=== PATIENT | female | born 1950 | race Caucasian/White ===

== ENCOUNTER 2022-11-11 11:15 | Outpatient (RCR) | payer MEDICARE, BC, SELFPAY | END 2023-01-13 11:11 | disposition home or self-care (01) | PROVIDERS: PCP Family Medicine; Visit Provider Family Medicine | DX: M25.511 Pain in right shoulder (principal); Z51.89 Encounter for other specified aftercare | CPT/HCPCS: 97110; 97140; 97162 ==

== ENCOUNTER 2024-10-16 13:42 | Emergency (ER) | payer MEDICARE, BC, SELFPAY ==
[2024-10-16] VITALS (36 sets, daily range): BP systolic 156–188; BP diastolic 78–96; PULSE 82–104; RESP 9–31; TEMP 36.2; O2SAT 94–99; BMI 31.2
--- OUTSIDE RECORDS SUMMARY | 2024-10-16 13:45 | XMS_ITS | Clinical Summary ---
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 Chlorthalidone Other - Describe In Comment Field 08/25/2013 Low sodium Metformin Other - Describe In Comment Field 07/20/2022 Both short and long-acting formulations caused GI side-effects. Metoprolol Constipation 03/19/2009 Medications MULTIVITAMIN TAB take 1 tablet by oral route once daily with food 0 8 Active triamcinolone (ARISTOCORT; KENALOG) 0.1 % creamIndications:C hronic eczema Apply topically to affected area(s) three times daily. As needed to effected areas. 80 g 2 Active blood sugar diagnostic (Contour Next Test Strips) stripIndications:d iabetes mellitus Dispense test strips covered by the patient insurance. Test 1 times per day. 100 Each 12 3 Active lancets (Microlet Lancet)Indications :diabetes mellitus For testing blood sugars once per day 100 Each 3 Active fluocinolone 0.01 % 0.01 % otic solutionIndication s:Eczema of both external ears Use 5 drops in affected ear(s) 1-2x daily for 7 days when your ears itch. 20 mL 3 3 Active levothyroxine (SYNTHROID) 100 mcg tabletIndications: Acquired hypothyroidism Take 1 Tablet (100 mcg) by mouth before breakfast. 90 Tablet 3 4 Active amLODIPine (NORVASC) 10 mg tabletIndications: Essential hypertension Take 1 Tablet (10 mg) by mouth once daily. 90 Tablet 3 4 Active dapagliflozin propanediol (FARXIGA) 5 mg tabletIndications: Type 2 diabetes mellitus without complication, without long-term current use of insulin (HC) Take 1 Tablet (5 mg) by mouth once daily. 90 Tablet 1 4 Active rosuvastatin (CRESTOR) 5 mg tabletIndications: Hyperlipidemia, unspecified hyperlipidemia type Take 1 Tablet (5 mg) by mouth at bedtime. 30 Tablet 11 4 Active lisinopriL (PRINIVIL; ZESTRIL) 40 mg tabletIndications: Essential hypertension TAKE 1 TABLET(40 MG) BY MOUTH EVERY DAY 90 Tablet 2 5 Active hydroCHLOROthiazid e 25 mg tabletIndications: Essential hypertension TAKE 1 TABLET(25 MG) BY MOUTH EVERY DAY 90 Tablet 2 5 Active Active Problems Problem Noted Date Diagnosed Date Osteopenia of multiple sites 02/05/2022 Overview (02/10/2022): Low FRAX scores Hyponatremia 01/12/2022 Microalbuminuria 01/12/2022 Overweight 01/13/2021 Type 2 diabetes mellitus without complication Tobacco abuse 07/29/2011 Overview (07/29/2011): Unable to quit; has quit for short periods, then another crisis 07/29/2011 Colon polyp 04/29/2010 Overview (08/14/2021): Colonoscopy 04/2010 polyps repeat in 3 years Colonoscopy 09/2015 hyperplastic polyp repeat in 5 years Colonoscopy 08/2021 TA, repeat in 7 years, propofol, colowrap Unspecified hypothyroidism 06/14/2008 Unspecified essential hypertension Other and unspecified hyperlipidemia Resolved Problems Problem Noted Date Diagnosed Date Resolved Date Medicare annual wellness visit, subsequent 01/12/2022 01/25/2023 Bilateral lower extremity edema 09/22/2016 01/12/2022 Routine general medical exam ination at a health care facility 07/29/2011 12/20/2018 Overview (07/29/2011): Stress echocardiogram negative 2007 Nonspecific abnormal electro cardiogram (ECG) (EKG) 02/01/2008 02/21/2008 Immunizations Immunization Administration Dates Next Due COVID-19 VACCINE SPIKEVAX (M ODERNA 50MCG/0.5ML) 12YO+ PFS 02/23/2024,01/25/2023 COVID-19 vaccine ([employer]-Bio NTech 30mcg/0.3mL) 12YO+ BIVALENT PF, MDV 07/20/2022,01/12/2022 COVID-19 vaccine (Pfizer-Bio NTech 30mcg/0.3mL) 12YO+ HILTON-SUCROSE PF, MDV 07/14/2021 COVID-19 vaccine (Pfizer-Bio NTech 30mcg/0.3mL) PF, MDV 01/01/2021 Influenza A (H1N1), Inactiva taniya (Age >=3 Years) 03/19/2009 Influenza, IIV3 (Age >=3 years) 04/15/2011,03/19,03/28/2008 Influenza, Inactivated AIIV4 (Age 65+ Years) Preserv Free 01/25/2023,01/12/2022,01/01/2021,2019 Influenza, Inactivated IIV3 (Age 65+ Years) Preserv Free 02/23/2024,12/20/2018,11/09/2017 Pneumococcal Conj 20-valent (Prevnar 20) 07/20/2022 Pneumococcal Poly,23-Valent (Pneumovax) 09/11/2015 Pneumococcal conj 13-Valent (Prevnar 13) 08/30/2014 Td (Age >=7 Years) 03/11/1995 Td, Preservative Free (age > = 7 Years) 11/09/2017 Tdap 11/30/2007 Zoster (Zostavax-ZVL, live) 07/29/2011 Family History Medical History Relation Name Comments Cancer Father Andrei Jose bladder, a t 73 Hypertension Father Andrei Jose Hypertension Mother Kristie at 95 Cancer-ovarian Neg. 1 Cancer-colon Neg. 2 Diabetes Paternal Grandmother Anesthesia Problem No Family History Cancer-breast No Family History Relation Name Status Comments Father Andrei Jose (Age 71) Mother Kristie Alive Neg. 1 Neg. 2 Paternal Grandmother Sister 1 Marylin Alive Sister 2 Gladys Alive Social History Tobacco Use Types Packs/Day Years Used Date Smoking Tobacco: Every Day Cigarettes 1 35.2 Started: 1989 Smokeless Tobacco: Never Tobacco Cessation:Ready to Q uit: No; Counseling Given: No Alcohol Use Standard Drinks/Week Comments Yes 0 (1 standard drink = 0.6 oz pur e alcohol) occasional beer PHQ-2 Answer Date Recorded PHQ-2 TOTAL SCORE 0 02/23/2024 Social Connections Answer Date Recorded Do you often feel lonely or isolated from those around you? 0 02/22/2024 Financial Resource Strain Answer Date R ecorded Difficulty of Paying Living Expenses 3 02/22/2024 Difficulty of Paying Living Expenses Not on file 02/22/2024 Food Insecurity Answer Date Recorded Do you worry your food will run out before you are able to buy more? 1 02/22/2024 Transportation Needs Answer Date Record ed Does lack of transportation keep you from medica l appointments? 1 02/22/2024 Does lack of transportation keep you from work, meetings or getting things that you need? 1 02/22/2024 Housing Stability Answer Date Recorded What is your housing situation today? 1 02/22/2024 Utilities Answer Date Recorded Do you have trouble paying f or utilities (for example, heat, electricity, water, phone)? 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 Not on file Not on file Not on file Not on file Not on file Not on file Not on file Obstetrics History Para Term AB IAB SAB Ectopic Multiple Livin g Live Births 3 3 3 Date Outcome GA Total Labor Labor/2nd/3rd Weight Sex Type Anes PTL Dora A1 A5 Name Clin Para Para Comments:C Sec Para Comments:C Sec Last Filed Vital Signs Vital Sign Reading Time Taken Comments Blood Pressure 138/62 02/23/2024 3:30 PM SOLE CEMENTER Pulse 96 02/23/2024 2:56 PM SOLE CEMENTER Temperature 36.7 C (98.1 F) 01/21/2021 1:21 PM SOLE CEMENTER Respiratory Rate 20 12/24/2007 9:04 AM CDT Oxygen Saturation 99% 02/23/2024 2:56 PM SOLE CEMENTER Inhaled Oxygen Concentration - - Weight 85.5 kg (188 lb 9.6 oz) 02/23/2024 2:56 P M SOLE CEMENTER Height 169.6 cm (5' 6.77) 02/23/2024 2:56 PM CS T Body Mass Index 29.74 02/23/2024 2:56 PM SOLE CEMENTER Plan of Treatment Health Maintenance Due Date Last Done Comments Zoster (shingles) series for age 50+ (2 of 3) 09/23/2011 07/29/2011 RSV vaccine for adults or (1 - 1-dose 75+ series) 2024 COVID-19 vaccine series (2023- season) 2024 02/23/2024, 01/25/2023, 07/20/2022, Additional history exists Influenza Vaccine (#1) 2024 , 01/25/2023, 01/12/2022, Additional history exists BMI (ht and wt on same day) for age 18+ 02/22/2025 02/23/2024, 01/25/2023, 01/12/2022, Additional history exists Medicare Wellness for age 65+ 02/23/2025 02/23/2024, 01/25/2023, 01/12/2022, Additional history exists Depression screening for age 12+ 03/13/2025 03/13/2024, 02/24/2024, 02/23/2024, Additional history exists Low Dose CT (for lung CA) age 50-80 03/13/2025 03/13/2024, 02/01/2023, 01/26/2022, Additional history exists Tetanus booster 11/10/2027 11/09/2017, 11/07, 03/11/1995 Colonoscopy through age 75 08/11/202808/11, 08/11/2021, 10/03/2015, Additional history exists Lipids for age 45-75 02/22/2029 02/23/2024, 01/22/2023, 01/06/2022, Additional history exists Hepatitis C screening for age 18-79 Completed 12/15/2018, 08/16/2012 DEXA/DXA scan for age 65+ Completed 02/09/2022, Pneumococcal series for age 50+ Completed 07/20/2022, 09/11/2015, 08/30/2014 Hepatitis B series for 19+ Aged Out N o longer eligible based on patient's age to complete this topic Procedures Procedure Name Priority Date/Time Associated Diagnosis Comments CT CHEST SCREENING LOW DOSE WO CONTRAST Routine 03/13/2024 8:29 AM SOLE CEMENTER Encounter for screening for lung cancer Smoker LIPID PANEL W REFLEX MEASURED LDL Routine 02/23/2024 3:55 PM SOLE CEMENTER Type 2 diabetes mellitus without complication, without long-term current use of insulin (HC) XR DXA BONE DENSITY 2 SITES AXIAL Routine 02/09/2022 9:28 AM SOLE CEMENTER Post-menopause COLONOSCOPY SCREENING Routine 08/11/2021 12:00 AM CDT Screening for colon cancer ANTI HCV Add On 12/15/2018 8:09 AM CDT Need for hepatitis C screening test from Last 3 Months or Most Recently Relevant to Health Maintenance Results * CT CHEST SCREENING LOW DOSE WO CONTRAST (03/13/2024 8:29 AM SOLE CEMENTER) Anatomical Region Laterality Modality Computed Tomogra phy Impressions 03/21/2024 10:47 AM SOLE CEMENTER Stable scattered sub 6 mm indeterminate pulmonary nodules. Lung-RADS 2. No intrathoracic mass or consolidation. Exophytic upper pole right renal nodular lesion measuring non simple attenuation and 3.3 cm. Incompletely visualized and assessed on this exam. If not previously worked up, recommend nonemergent dedicated renal ultrasound to assess cystic versus solid nature. LUNG-RADS CATEGORY: 2: Benign. RADIOLOGIST RECOMMENDATION: Continue annual screening with low-dose CT chest in 12 months. Dictated by: Stan Boateng MD @03/13/2024 1:45:49 PM /sp Narrative 03/21/2024 10:47 AM SOLE CEMENTER For Patients: As a result of the Century Cures Act, medical imaging exams and procedure reports are released immediately into your electronic medical record. You may view this report before your referring provider. If you have questions, please contact your health care provider. CT CHEST SCREENING LOW-DOSE WITHOUT CONTRAST 03/13/2024 INDICATION: Lung cancer screening. History of smoking. High-risk patient with smoking history. TECHNIQUE: Low-dose lung cancer screening non-contrast CT chest. Dose reduction techniques were used. COMPARISON: Exams dating back to 2020. FINDINGS: Lungs and Airways: No mass or consolidation. No endoluminal lesion. Stable scattered sub 6 mm indeterminate pulmonary nodules. No new suspicious pulmonary nodules. Heart and Mediastinum: Atrophic versus resected thyroid. No axillary or supraclavicular lymphadenopathy. No mediastinal, hilar or retrocrural lymphadenopathy. Normal heart size. Normal caliber aorta. Atherosclerotic and coronary artery calcifications. Pleura: The pleural spaces are normal. Abdomen: Exophytic upper pole right renal nodular lesion measuring non simple attenuation and 3.3 cm. Incompletely visualized and assessed on this exam. If not previously worked up, recommend nonemergent dedicated renal ultrasound to assess cystic versus solid nature. Bones and Soft Tissues: The skeletal structures and soft tissues of the chest wall are unremarkable. us Claus Khan MD CT Final Result * (ABNORMAL) LIPID PANEL W REFLEX MEASURED LDL (02/23/2024 3:55 PM SOLE CEMENTER) CHOLESTEROL, TOTAL 238(H) <200 mg/dL [facility] HDL CHOLESTEROL 47(L) > OR = 50 mg/dL [facility] TRIGLYCERIDES 189(H) <150 mg/dL [facility] LDL-CHOLESTEROL 157(H) mg/dL (calc) [facility] Comment: Reference range: <100 Desirable range <100 mg/dL for primary prevention; <70 mg/dL for patients with CHD or diabetic patients with > or = 2 CHD risk factors. LDL-C is now calculated using the Simin calculation, which is a validated novel method providing better accuracy than the Friedewald equation in the estimation of LDL-C. Teodoro RICO et al. SERGIO. 2013;310(19): 8279-5859 (http://education.wali/faq/LAX248) CHOL/HDLC RATIO 5.1(H) <5.0 (calc) [facility] NON HDL CHOLESTEROL 191(H) <130 mg/dL (calc) [facility] Comment: For patients with diabetes plus 1 major ASCVD risk factor, treating to a non-HDL-C goal of <100 mg/dL (LDL-C of <70 mg/dL) is considered a therapeutic option. Blood BLOOD SPECIMEN / Unknown 02/23/2024 3:55 PM SOLE CEMENTER 02/23/2024 3:56 PM SOLE CEMENTER Claus Khan MD CHEMISTRY Final Result [facility] [address] [place] [address], [facility] [address] [place] [address] * (ABNORMAL) XR DXA BONE DENSITY 2 SITES AXIAL (02/09/2022 9:28 AM SOLE CEMENTER) Anatomical Region Laterality Modality Spine, HIPS, HIPL, HIPR Other Impressions 02/10/2022 12:48 PM SOLE CEMENTER Osteopenia. RECOMMENDATIONS: The National Osteoporosis Foundation recommends pharmacologic treatment for patients with T-scores of -2.5 or less, patients with prior history of fragility fractures, or patients with 10-year probability of greater than 3% at hips or greater than 20% of suffering major osteoporotic fractures. Recommend continued optimization of calcium and vitamin D intake through dietary means and/or supplementation and regular exercise. Repeat scan recommended in 3-5 years. Mirian Ngo PA-C [facility] 02/10/2022 Narrative 02/10/2022 12:48 PM SOLE CEMENTER For Patients: Results are automatically released to your [facility] account once available, in compliance with federal regulations. This means that you may see your results before your provider has had a chance to review them. Please allow 2-3 business days for your provider to comment on the results. XR DXA Bone Mineral Density (BMD) EXAM [address]: [address] [place] [address] PATIENT NAME: Savannah Alberto DATE OF : 1950 EXAM DATE: 02/09/2022 REQUESTING PROVIDER: Claus Khan MD GENDER AT : female HEIGHT: 5' 6.85 (01/12/2022) WEIGHT: 194 lb 9.6 oz (01/12/2022) MENOPAUSAL STATUS: Postmenopausal RACE/ETHNICITY: White RISK FACTORS: Smoking (current) CURRENT MEDICATION FOR BONE LOSS: NONE INDICATION: Post-Menopause COMPARISON DATE(S): 2016 DXA scans are compared to prior studies for a patient only when the two (or more) studies were performed on the same scanner. It is not possible to compare data generated on one scanner to data from another because there are not standards in DXA equipment. This applies even if the two scanners are made by the same kid club attendant. PROCEDURE: Dual-energy x-ray absorptiometry performed with routine technique. Reporting is completed in the form of a T-score. The T-score represents the standard deviation from peak bone mass based on young healthy adult. A Z-score is used for diagnosis in premenopausal women, and for men under the age of 50. FINDINGS: RESULT LUMBAR SPINE L1 - L4 BMD: 1.255 g/cm2 T-Score: + 0.5 Z-Score: + 1.4 Change from prior in 2016: Increase 3.6%. RESULTS FEMUR Left femoral neck BMD: 0.875 g/cm2 T-Score: - 1.2 Z-Score: + 0.1 Change from prior in 2016: Decrease 2.2%. Right femoral neck BMD: 0.872 g/cm2 T-Score: - 1.2 Z-Score: + 0.1 Change from prior in 2016: Decrease 9.7%. Left hip BMD: 0.988 g/cm2 T-Score: - 0.2 Z-Score: + 0.9 Change from prior in 2016: Decrease 0.1%. Right hip BMD: 1.012 g/cm2 T-Score: + 0.0 Z-Score: + 1.1 Change from prior in 2016: Decrease 4.5%. WHO criteria: Normal: T-score at or above -1 SD Osteopenia: T-score between -1.1 and -2.4 SD Osteoporosis: T-score at or below -2.5 SD FRAX RISK CALCULATION (USED FOR OSTEOPENIA ONLY): 10-year probability of major osteoporotic fracture: 9.7%. 10-year probability of hip fracture: 2.2%. Claus Khan MD DEXA Final Result * COLONOSCOPY SCREENING (08/11/2021 12:00 AM CDT) Claus Khan MD GI PROCEDURE ORD Final Result * ANTI HCV (12/15/2018 8:09 AM CDT) HEPATITIS C ANTIBODY Non-React emy Non-React emy 12/20/2018 9:40 AM CDT [facility] Comment:Antibodies to HCV no t detected; does not exclude the possibility of exposure to HCV. Blood BLOOD SPECIMEN / Unknown Venipuncture / Unknown 12/15/2018 8:09 AM CDT 12/15/2018 8:09 AM CDT Claus Khan MD SEND OUTS Final Result [facility] [address] [place] [address], from Last 3 Months or Most Recently Relevant to Health Maintenance Insurance [employer] [id number] [employer] BLUE MR PB ONLY MEDICARE PART B HB ONLY [employer]UE [employer] BLUE HB ONLY Care Teams Athletics Teacher Relationship Specialty Start Date End Date Claus Khan MD [address] [place] [address] PCP - General Family Practice 08/18/13
--- NOTE | 2024-10-16 14:06 | ED.CHESTPAIN ---
HPI - Chest Pain General Time Seen by Provider: 14:06 Date Seen: 10/16/24 Chief Complaint: Chest Pain Stated Complaint: mid chest pain/ BP up and down Time Seen by Provider: 10/16/24 14:06 Source: patient and RN notes reviewed Mode of arrival: ambulatory Limitations: no limitations History of Present Illness HPI narrative: Nursing staff asked me to attend this patient after EKG was obtained in triage with abnormality. They did give patient 324 mg aspirin, at this time she states her symptoms really seem to be better. She had generalized jaw tightness and discomfort around 630-7 this morning. She states there were time she thought maybe was just anxiety. She had some central substernal lower chest pain starting around 11:00 a.m. today. She does have a hypertension, there is no family history of heart disease, no personal history of heart disease prior. She thought her blood pressure was labile during this. When she came in her chest symptoms were 3/10, by the time I am seen her she states she really does not have any symptoms. She is not short of breath, no respiratory symptoms with this. She did state she ate lunch, maybe felt a little worse after that but otherwise no GI symptoms with this. Related Data Home Medications ?Medication ?Instructions ?Recorded ?Confirmed amlodipine 10 mg tablet 10 mg PO DAILY 11/10/23 11/10/23 hydrochlorothiazide 25 mg tablet 25 mg PO DAILY 11/10/23 11/10/23 levothyroxine 100 mcg tablet 100 mcg PO DAILY 11/10/23 11/10/23 lisinopril 40 mg tablet 40 mg PO DAILY 11/10/23 11/10/23 Allergies Allergy/AdvReac Type Severity Reaction Status Date / Time No Known Drug Allergies Allergy Verified 11/10/23 09:39 Review of Systems Status of ROS Reports: 6 or more systems reviewed and unremarkable except as noted in History and below Exam Const Vital Signs, click to edit/add: Vital Signs - 24 hr 10/16/24 13:57 10/16/24 14:19 10/16/24 14:22 Temperature 97.2 F L Pulse Rate 104 H Pulse Rate [Pulse Oximeter] 103 H Respiratory Rate 16 24 Blood Pressure Blood Pressure [Right Upper Arm] 175/78 H Pulse Oximetry 96 99 98 Oxygen Delivery Method Room Air 10/16/24 14:30 10/16/24 14:32 10/16/24 14:45 Temperature Pulse Rate 98 101 H 100 Pulse Rate [Pulse Oximeter] Respiratory Rate 10 L 11 L 21 Blood Pressure 175/88 H Blood Pressure [Right Upper Arm] Pulse Oximetry 98 97 99 Oxygen Delivery Method 10/16/24 15:00 10/16/24 15:02 10/16/24 15:15 Temperature Pulse Rate 89 96 91 Pulse Rate [Pulse Oximeter] Respiratory Rate 14 15 11 L Blood Pressure 168/92 H Blood Pressure [Right Upper Arm] Pulse Oximetry 98 96 96 Oxygen Delivery Method 10/16/24 15:30 10/16/24 15:32 10/16/24 15:45 Temperature Pulse Rate 97 98 95 Pulse Rate [Pulse Oximeter] Respiratory Rate 17 13 10 L Blood Pressure 176/80 H Blood Pressure [Right Upper Arm] Pulse Oximetry 96 96 97 Oxygen Delivery Method 10/16/24 16:00 10/16/24 16:02 10/16/24 16:15 Temperature Pulse Rate 98 100 98 Pulse Rate [Pulse Oximeter] Respiratory Rate 12 16 31 H Blood Pressure 172/89 H Blood Pressure [Right Upper Arm] Pulse Oximetry 98 98 97 Oxygen Delivery Method 10/16/24 16:24 10/16/24 16:30 10/16/24 16:45 Temperature Pulse Rate 97 96 98 Pulse Rate [Pulse Oximeter] Respiratory Rate 11 L 25 H 22 Blood Pressure 188/96 H Blood Pressure [Right Upper Arm] Pulse Oximetry 99 98 97 Oxygen Delivery Method 10/16/24 17:06 10/16/24 17:07 10/16/24 17:15 Temperature Pulse Rate 99 94 Pulse Rate [Pulse Oximeter] Respiratory Rate 17 14 20 Blood Pressure 173/89 H Blood Pressure [Right Upper Arm] Pulse Oximetry 96 97 Oxygen Delivery Method 10/16/24 17:30 10/16/24 17:45 10/16/24 18:00 Temperature Pulse Rate 92 100 91 Pulse Rate [Pulse Oximeter] Respiratory Rate 16 16 12 Blood Pressure Blood Pressure [Right Upper Arm] Pulse Oximetry 96 97 96 Oxygen Delivery Method 10/16/24 18:04 10/16/24 18:15 10/16/24 18:30 Temperature Pulse Rate 93 89 94 Pulse Rate [Pulse Oximeter] Respiratory Rate 23 9 L Blood Pressure 163/94 H Blood Pressure [Right Upper Arm] Pulse Oximetry 96 97 96 Oxygen Delivery Method 10/16/24 18:45 08/11/25 18:58 10/16/24 19:00 Temperature Pulse Rate 87 84 91 Pulse Rate [Pulse Oximeter] Respiratory Rate 21 15 15 Blood Pressure 175/94 H Blood Pressure [Right Upper Arm] Pulse Oximetry 97 96 94 Oxygen Delivery Method 10/16/24 19:15 10/16/24 19:30 10/16/24 19:46 Temperature Pulse Rate 82 Pulse Rate [Pulse Oximeter] Respiratory Rate 18 15 Blood Pressure 156/91 H Blood Pressure [Right Upper Arm] Pulse Oximetry 95 Oxygen Delivery Method 10/16/24 20:44 10/16/24 21:03 10/16/24 21:15 Temperature Pulse Rate Pulse Rate [Pulse Oximeter] Respiratory Rate 17 17 Blood Pressure 160/95 H Blood Pressure [Right Upper Arm] Pulse Oximetry Oxygen Delivery Method Course Course ED Course: This patient has chest pain and jaw symptoms with abnormal EKG that is concerning for ischemic disease. Will get a point of care troponin and get a backup troponin I. Will also consider D-dimer as she is hypertensive here, could be some atypical presentation aortic disease like dissection or aneurysm. Right now she is hemodynamically stable, mildly tachycardic with no hypoxia no respiratory symptoms, doubt venous thromboembolic disease. Will talk to Cardiology, see if they have any old EKGs on her or other history. Reevaluation(s) Time of Reevaluation #1: 14:59 Reevaluation #1: Have reviewed that her point of care troponin is normal. Her EKG is certainly not normal, she is aware that I have spoken with Cardiology. Will continue to monitor, await labs. She understands that she will be getting follow-up troponins if appropriate. Will also wait to see what her D-dimer is to see if she needs CT imaging. Time of Reevaluation #2: 17:39 Reevaluation #2: Did update patient and her son that her 2nd troponin has come back mildly elevated. Her EKG actually looks better. She has no chest pain. She has maybe a faint sensation of some jaw discomfort. We have paged Cardiology, I am going to start ACS heparin and start a low-dose nitro drip. Time of Reevaluation #3: 19:41 Reevaluation #3: There is bed availability and placement now at [facility]. We are waiting ambulance transfer, they have been paged out. Additional Reevaluation(s): 8:46 p.m.: Patient is getting a mild headache from the nitroglycerin, will order a 1000 mg Tylenol and see if it helps. Still awaiting transfer to [facility], delays with EMS due to availability. Consultations Consultation #1: Did talk to [facility] cone worker Dr. Ceballos. He does not have any recent old EKG on her either. I will contact him back when I have more information regarding her labs and troponins. 5:48 p.m.: Did speak with Dr. Ceballos again. He agrees with management. This is an NSTEMI. There may be up to an 8 hour bed delay. If patient is having escalating symptoms, will recheck EKG and troponin, contact them if there is any change in status. Otherwise will initiate the nitroglycerin drip, heparin per ACS protocol. Time: 14:19 Vital Signs Vital signs: Initial Vital Signs Temperature 97.2 F L 10/16/24 13:57 Temperature Source Temporal Artery Scan 10/16/24 13:57 Pulse Rate 103 H 10/16/24 13:57 Respiratory Rate 16 10/16/24 13:57 Blood Pressure 175/78 H 10/16/24 13:57 Blood Pressure Mean 110 H 10/16/24 13:57 Blood Pressure Position Sitting 10/16/24 13:57 Pulse Oximetry 96 10/16/24 13:57 Oxygen Delivery Method Room Air 10/16/24 13:57 Vital Signs Temperature 97.2 F L 10/16/24 13:57 Pulse Rate 103 H 10/16/24 13:57 Respiratory Rate 16 10/16/24 13:57 Blood Pressure 175/78 H 10/16/24 13:57 Pulse Oximetry 96 10/16/24 13:57 Oxygen Delivery Method Room Air 10/16/24 13:57 Temperature 97.2 F L 10/16/24 13:57 Pulse Rate 82 10/16/24 19:15 Respiratory Rate 17 10/16/24 21:15 Blood Pressure 160/95 H 10/16/24 20:44 Pulse Oximetry 95 10/16/24 19:15 Oxygen Delivery Method Room Air 10/16/24 13:57 Medications Administered Medications: Discontinued Medications Generic Name Dose Route Start Last Admin Trade Name Freq PRN Reason Stop Dose Admin Acetaminophen 1,000 mg 10/16/24 20:45 10/16/24 20:49 Acetaminophen 500 Mg Tablet PO 10/16/24 20:46 1,000 mg ONCE ONE Administration Aspirin 324 mg 10/16/24 14:24 10/16/24 14:08 Aspirin 81 Mg Tab.Chew PO 10/16/24 14:25 324 mg ONCE ONE Administration Heparin Sodium (Porcine) 4,000 unit 10/16/24 17:40 10/16/24 18:07 Heparin 5,000 Unit/0.5 Ml Inj IVP 10/16/24 17:41 4,000 unit ONCE ONE Administration Heparin Sodium/Dextrose 25,000 unit in 500 mls @ 0 mls/hr 10/16/24 17:45 10/16/24 18:08 Heparin IV 1,000 unit/hr .Q0M JUSTIN 20 mls/hr Protocol Administration Per Protocol Nitroglycerin/Dextrose 25,000 mcg in 250 mls @ 3 mls/hr 10/16/24 17:41 10/16/24 19:30 Nitroglycerin/Dextrose IVPB 5 mcg/min .TITRATE PRN 3 mls/hr jaw or chest pain Administration Protocol 5 MCG/MIN MDM - Chest Pain Lab Data Attestation: I reviewed the patient's lab results. Labs: Lab Results 10/16/24 10/16/24 10/16/24 Range/Units 14:13 14:15 16:30 WBC 11.06 H (4.50-11.00) K/uL RBC 4.91 (4.00-5.20) m/uL Hgb 14.4 (12.0-16.0) gm/dL Hct 43.6 (33.0-51.0) % MCV 89 (80-100) fL MCH 29 (26-34) pg MCHC 33 (32-36) gm/dL RDW Coeff of Alo 13.1 (11.5-15.5) % Plt Count 373 (140-440) K/uL Neut % (Auto) 70.7 (42.0-72.0) % Lymph % (Auto) 16.9 L (20-44) % [place] % (Auto) 6.9 (0.0-11.0) % Eos % (Auto) 4.5 (0.0-7.0) % Baso % (Auto) 0.8 (0.0-3.0) % Neut # (Auto) 7.80 H (1.7-7.0) K/uL Lymph # (Auto) 1.90 (0.90-2.90) K/uL [place] # (Auto) 0.80 (0.00-0.90) K/UL Eos # (Auto) 0.50 (0.00-0.50) K/uL Baso # (Auto) 0.10 (0.00-0.30) K/uL Abs Immat Gran (auto) 0.00 (0.00-0.30) K/uL Imm/Tot Granulo (auto) 0.2 % INR 0.92 (0.91-1.10) APTT 30 (23-33) Seconds D-Dimer Quant (PE/DVT) 0.81 H (0.00-0.50) ug/ml Sodium 132 L (135-149) mmol/L Potassium 4.3 (3.6-5.1) mmol/L Chloride 98 (96-114) mmol/L Carbon Dioxide 27 (20-32) mmol/L Anion Gap 7 (7-15) mEq/L BUN 28 (7-30) mg/dL Creatinine 1.2 (0.5-1.5) mg/dL Estimated Creat Clear 37.92 Estimated GFR 47 ml/min Glucose 190 H (60-115) mg/dL Lactate 1.9 (0.5-1.9) mmol/L Calcium 9.6 (8.4-10.6) mg/dL Magnesium 1.8 (1.5-2.6) mg/dL Total Bilirubin 0.6 (0.1-1.5) mg/dL AST 42 H (12-35) U/L ALT 35 (4-35) U/L Alkaline Phosphatase 98 (40-150) U/L Troponin I 0.02 0.16 H* (0.01-0.04) ng/mL NT-Pro-B Natriuret Pep 153 (See Note) pg/mL Total Protein 8.7 H (6.0-8.3) g/dL Albumin 4.4 (3.3-5.0) g/dL POC Troponin I 0.01 0.24 H (0.01-0.04) ng/ml Imaging Data Chest x-ray: Attestation: I have reviewed the pertinent imaging results. Radiologist's impression: Patient: KOBI ORDOÑEZ Facility:?[facility] Patient ID:?[id number] Site Patient ID:?[id number]. Site :?[id number] Study:?XRay-Chest 1 VIEW PORTABLE-10/16/2024 2:35:34 PM Ordering Physician:Chelle Haile Final Report: INDICATION: Chest pain TECHNIQUE: Portable AP image of the chest COMPARISON: None FINDINGS: Lungs clear. No pleural effusion or pneumothorax. Heart size and pulmonary vasculature within normal limits. No obvious rib fracture or other significant osseous abnormality. IMPRESSION: Negative chest Dictated by Nabeel Ruiz MD @ 10/16/2024 2:43:38 PM (Electronic Signature) ECG Data Attestation: I personally reviewed and interpreted this ECG as follows: (Normal sinus rhythm, 95 beats per minute. Inferior ST segment depression with flipped T-waves and on and in the precordial leads, possibly V2 but definitely V3 through V6.) ECG interpretation date: 10/16/24 ECG interpretation time: 14:06 Interpretation: Repeat EKG from 4:42 p.m. shows normal sinus rhythm, 97 beats per minute. Poor R-wave progression anterior precordial leads but the significant ST segment changes that were diffusely down with T-wave inversion in the inferior and anterior precordial leads have significantly improved. Discharge Plan Discharge Clinical Impression: Acute non-ST elevation myocardial infarction (NSTEMI) Patient Disposition: Xfer [facility] Discharge Location: [facility] Prescriptions: No Action lisinopril 40 mg tablet 40 mg PO DAILY hydrochlorothiazide 25 mg tablet 25 mg PO DAILY amlodipine 10 mg tablet 10 mg PO DAILY levothyroxine 100 mcg tablet 100 mcg PO DAILY Stand Alone Forms: [employer] Info Instructions
[2024-10-16] MEDS: ASPIRIN 81 MG TAB.CHEW 324 MG PO (14:08)
--- NOTE | 2024-10-16 14:12 | CRLHL7_ITS ---
For Patients: As a result of the Century Cures Act, medical imaging exams and procedure reports are released immediately into your electronic medical record. You may view this report before your referring provider. If you have questions, please contact your health care provider. INDICATION: Chest pain TECHNIQUE: Portable AP image of the chest COMPARISON: None FINDINGS: Lungs clear. No pleural effusion or pneumothorax. Heart size and pulmonary vasculature within normal limits. No obvious rib fracture or other significant osseous abnormality. IMPRESSION: Negative chest Dictated by Nabeel Ruiz MD @ 10/16/2024 2:43:38 PM (Electronically Signed)
[2024-10-16 14:28] LABS: Lactate* 1.9 mmol/L (0.5-1.9)
[2024-10-16 14:34] LABS: Troponin, Point-of-Care* 0.01 ng/ml (0.01-0.04)
[2024-10-16 14:34] LABS: Hematocrit 43.6 % (33.0-51.0); Hemoglobin* 14.4 gm/dL (12.0-16.0); Immature Granulocytes Pct Auto 0.2 %; Mean Corpuscular HGB Conc 33 gm/dL (32-36); Mean Corpuscular Hemoglobin 29 pg (26-34); Mean Corpuscular Volume 89 fL (80-100); RDW Coefficient of Variation % 13.1 % (11.5-15.5); Red Blood Count 4.91 m/uL (4.00-5.20); White Blood Count* 11.06 K/uL (4.50-11.00)
[2024-10-16 14:36] LABS: Immature Granulocytes Abs Auto 0.00 K/uL (0.00-0.30); Lymphocytes Absolute Auto 1.90 K/uL (0.90-2.90); Slide Review Reflex No
[2024-10-16 14:48] LABS: Albumin* 4.4 g/dL (3.3-5.0); Chloride* 98 mmol/L (96-114); Potassium* 4.3 mmol/L (3.6-5.1); Sodium* 132 mmol/L (135-149)
[2024-10-16 14:51] LABS: Alanine Aminotransferase* 35 U/L (4-35); Alkaline Phosphatase* 98 U/L (40-150); Anion Gap 7 mEq/L (7-15); Aspartate Amino Transferase* 42 U/L (12-35); Bilirubin Total* 0.6 mg/dL (0.1-1.5); Blood Urea Nitrogen* 28 mg/dL (7-30); Calcium* 9.6 mg/dL (8.4-10.6); Carbon Dioxide* 27 mmol/L (20-32); Creatinine* 1.2 mg/dL (0.5-1.5); Est. Creatinine Clearance* 37.92; Estimated Glomerular Filt Rate 47 ml/min; Glucose* 190 mg/dL (60-115); Total Protein* 8.7 g/dL (6.0-8.3)
[2024-10-16 15:04] LABS: NT Pro B Type NatriureticPept* 153 pg/mL (See Note)
[2024-10-16 15:14] LABS: INR 0.92 (0.91-1.10); Prothrombin Time 13.1 Seconds
[2024-10-16 15:18] LABS: D Dimer Quantitative* 0.81 ug/ml (0.00-0.50)
[2024-10-16 16:48] LABS: Troponin, Point-of-Care* 0.24 ng/ml (0.01-0.04)
[2024-10-16] MEDS: HEPARIN 5,000 UNIT/0.5 ML INJ 4000 UNIT IVP (18:07)
[2024-10-16] MEDS: HEPARIN 25,000 UNIT/500 ML BAG 20 UNIT IV (18:08)
[2024-10-16] MEDS: NITROGLYCERIN/DEXTROSE 25,000 MCG/250 ML BOTTLE 3 MCG IVPB (19:30)
[2024-10-16] MEDS: ACETAMINOPHEN 500 MG TABLET 1000 MG PO (20:49)
== END 2024-10-16 22:04 | disposition short-term general hospital (02) ==
PROVIDERS: Emergency Provider Family Medicine; PCP Family Medicine
DX: I21.4 Non-ST elevation (NSTEMI) myocardial infarction (principal)
CPT/HCPCS: 36415; 71045; 80053; 83605; 83735; 83880; 84484; 85025; 85379; 85610; 85730; 93005; 94761; 99285; A9270; J1644

== ENCOUNTER 2024-10-16 22:10 | Outpatient (CLI) | payer MEDICARE, BC, SELFPAY | END 2024-10-16 22:11 | disposition home or self-care (01) | LOC: AMB 10-19 12:33 | PROVIDERS: PCP Family Medicine; Visit Provider Family Medicine | DX: I21.4 Non-ST elevation (NSTEMI) myocardial infarction (principal) | CPT/HCPCS: A0425; A0434 ==

== ENCOUNTER 2024-10-20 13:42 | Emergency (ER) | payer MEDICARE, BC, SELFPAY ==
[2024-10-20] VITALS (34 sets, daily range): BP systolic 157–178; BP diastolic 74–88; PULSE 75–92; RESP 11–26; TEMP 36.8; O2SAT 96–99
--- OUTSIDE RECORDS SUMMARY | 2024-10-20 13:44 | XMS_ITS | Clinical Summary ---
Author Organization [facility] Address [address] [place] [id number] Care Team Providers Care Mid Level Java Developer Name Role Phone Claus Khan MD Primary [...] oral route once daily with food 0 11/30/19 08 Active blood sugar diagnostic (Contour Next Test Strips) stripIndications: diabetes mellitus Dispense test strips covered by the patient insurance. Test 1 times per day. 100 Each 12 08/06/19 23 Active lancets (Microlet Lancet)Indication s:diabetes mellitus For testing blood sugars once per day 100 Each 08/06/19 23 Active levothyroxine (SYNTHROID) 100 mcg tabletIndications :Acquired hypothyroidism Take 1 Tablet (100 mcg) by mouth before breakfast. 90 Tablet 3 02/23/20 24 Active amLODIPine (NORVASC) 10 mg tabletIndications :Essential hypertension Take 1 Tablet (10 mg) by mouth once daily. 90 Tablet 3 02/23/20 24 Active lisinopriL (PRINIVIL; ZESTRIL) 40 mg tabletIndications :Essential hypertension TAKE 1 TABLET(40 MG) BY MOUTH EVERY DAY 90 Tablet 2 05/11/19 25 Active triamcinolone (ARISTOCORT; KENALOG) 0.1 % cream Apply topically to affected area(s) 3 times daily if needed (itching). Active rosuvastatin (CRESTOR) 40 mg tabletIndications :NSTEMI (non-ST elevated myocardial infarction) (HC) Take 1 Tablet (40 mg) by mouth at bedtime. 90 Tablet 3 5 12:25 PM CDT 10/19/19 25 Active aspirin chewable 81 mg tabletIndications :NSTEMI (non-ST elevated myocardial infarction) (HC) Take 1 Tablet (81 mg) by mouth or nasogastric tube once daily. 90 Tablet 3 5 12:25 PM CDT 10/20/19 25 Active nitroglycerin 0.4 mg sublingual tabletIndications :NSTEMI (non-ST elevated myocardial infarction) (HC) Place 1 Tablet (0.4 mg) under the tongue every 5 minutes if needed for Chest pain 1st choice (Hold if SBP less than 90 mmHg). Up to 3 tablets in 15 minutes. 25 Tablet 3 5 12:25 PM CDT 10/19/19 25 Active ticagrelor (BRILINTA) 90 mg tabletIndications :NSTEMI (non-ST elevated myocardial infarction) (HC) Take 1 Tablet (90 mg) by mouth two times daily. 180 Tablet 3 5 12:25 PM CDT 10/19/19 25 Active carvediloL (COREG) 6.25 mg tabletIndications :NSTEMI (non-ST elevated myocardial infarction) (HC),HTN (hypertension) Take 1 Tablet (6.25 mg) by mouth two times daily with meals. 180 Tablet 1 5 12:25 PM CDT 10/19/19 25 Active nicotine 21 mg/24 hr (NICODERM; HABITROL) 21 mg/24 hr patchIndications: NSTEMI (non-ST elevated myocardial infarction) (HC) Apply 1 Patch on dry, clean, hairless skin once daily if needed for Nicotine Craving. 10/19/19 25 Active triamcinolone (ARISTOCORT; KENALOG) 0.1 % creamIndications: Chronic eczema Apply topically to affected area(s) three times daily. As needed to effected areas. 80 g 01/13/20 22 2024 Discontinued (Pharmacist change per medication history (E-cancel not sent)) fluocinolone 0.01 % 0.01 % otic solutionIndicatio ns:Eczema of both external ears Use 5 drops in affected ear(s) 1-2x daily for 7 days when your ears itch. 20 mL 3 08/27/19 23 2024 Discontinued (Pharmacist change per medication history (E-cancel not sent)) dapagliflozin propanediol (FARXIGA) 5 mg tabletIndications :Type 2 diabetes mellitus without complication, without long-term current use of insulin (HC) Take 1 Tablet (5 mg) by mouth once daily. 90 Tablet 1 02/24/20 24 2024 Discontinued (*Patient states no longer taking) rosuvastatin (CRESTOR) 5 mg tabletIndications :Hyperlipidemia, unspecified hyperlipidemia type Take 1 Tablet (5 mg) by mouth at bedtime. 30 Tablet 11 02/24/20 24 2024 Discontinued (Pharmacist change per medication history (E-cancel not sent)) hydroCHLOROthiazi de 25 mg tabletIndications :Essential hypertension TAKE 1 TABLET(25 MG) BY MOUTH EVERY DAY 90 Tablet 2 05/11/19 25 2024 Discontinued (*IP Discontinued ) Active Problems Problem Noted Date Diagnosed Date Hypothyroidism (acquired) 10/16/2024 Primary hypertension 10/16/2024 NSTEMI (non-ST elevated myocardial infarction) 0 10/16/2024 Osteopenia of multiple sites 02/05/2022 Overview (02/10/2022): [...] TA, repeat in 7 years, propofol, colowrap Other and unspecified hyperlipidemia Resolved Problems Problem Noted Date Diagnosed Date Resolved Date Medicare annual wellness visit, subsequent 01/12/2022 01/25/2023 Bilateral lower extremity edema 09/22/2016 01/12/2022 Routine general medical exam ination at a health care facility 07/29/2011 12/20/2018 Overview (07/29/2011): Stress echocardiogram negative 2007 Nonspecific abnormal electro cardiogram (ECG) (EKG) 02/01/2008 02/21/2008 Encounters Date Type Department Care Team Description 10/19/2024 Patient Outreach [facility] [address] [place] [address] Emeli Avila, RN Hospital F/U; Primary RN Care Management (LACE 68 ) 10/17/2024 Travel 10/16/2024 11:06 PM CDT - 10/18/2024 12:44 PM CDT Hospital Encounter [facility] [address] [place] [address] [facility], [facility] Hospitalists Of Eran Campbell MD Tetzlaff, Stan Sheehan MD NSTEMI (non-ST elevated myocardial infarction) (HC) (Primary Dx); Cardiovascular symptoms; S/P drug eluting coronary stent placement; HTN (hypertension) Discharge Disposition: Home Self Care 10/16/2024 Orders Only [facility] Scanner 1 scan: (1-Ord) SCRANTON, CHEST 1V PORTABLE, 10/16/2024 10/16/2024 Telephone [facility] [address] [place] [address] Stan Ceballos MD from Last 3 Months Immunizations Immunization Administration Dates Next Due COVID-19 VACCINE SPIKEVAX (M ODERNA 50MCG/0.5ML) 12YO+ PFS 02/23/2024,01/25/2023 COVID-19 vaccine (Pfizer-Bio NTech 30mcg/0.3mL) 12YO+ BIVALENT PF, MDV 07/20/2022,01/12/2022 [...] or isolated from those around you? 0 10/17/2024 Financial Resource Strain Answer Date R ecorded Difficulty of Paying Living Expenses 3 02/22/2024 Difficulty of Paying Living Expenses Not on file 02/22/2024 Food Insecurity Answer Date Recorded Do you worry your food will run out before you are able to buy more? 1 10/17/2024 Transportation Needs Answer Date Record ed Does lack of transportation keep you from medica l appointments? 1 10/17/2024 Does lack of transportation keep you from work, meetings or getting things that you need? 1 10/17/2024 Housing Stability Answer Date Recorded What is your housing situation today? 1 10/17/2024 Interpersonal Safety Answer Date Record ed Are you being hit, kicked, p ushed or yelled at (see row info)? No 10/17/2024 Interpersonal Safety Abuse 12 - 18 Not on file 10/17/2024 Interpersonal Safety Ambulatory Vulnerability No t on file 10/17/2024 Utilities Answer Date Recorded Do you have trouble paying f or utilities (for example, heat, electricity, water, phone)? 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 Not on file Not [...] Sign Reading Time Taken Comments Blood Pressure 166/83 10/18/2024 8:13 AM CDT Pulse 84 10/18/2024 10:00 AM CDT Temperature 36.9 C (98.5 F) 10/18/2024 8:13 AM CDT Respiratory Rate 16 10/18/2024 8:13 AM CDT Oxygen Saturation 95% 10/18/2024 8:13 AM CDT Inhaled Oxygen Concentration - - Weight 85.6 kg (188 lb 11.4 oz) 10/18/2024 6:00 AM CDT Height 169.6 cm (5' 6.77) 02/23/2024 2:56 PM CS T Body Mass Index 29.76 02/23/2024 2:56 PM 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 Plan of Treatment Upcoming Encounters Date Type Department Care Team (Late st Contact Info) Description 10/23/2024 11:20 AM CDT Office Visit [facility] [address] [place] [address] Claus Khan MD [address] [place] [address] 12/01/2024 10:45 AM CDT Office Visit [facility] [address] [place] [address] [place] [address] [place] [address] Health Maintenance Due Date Last Done Comments Zoster (shingles) series for age 50+ (2 of 3) 09/23/2011 07/29/2011 RSV vaccine for adults or (1 - 1-dose 75+ series) 2024 COVID-19 vaccine series ( season) 2024 02/23/2024, 01/25/2023, 07/20/2022, Additional history [...] Additional history exists Lipids for age 45-75 10/17/2029 10/17/2024, 02/23/2024, 01/22/2023, Additional history exists Hepatitis C screening for age 18-79 Completed 12/15/2018, 08/16/2012 DEXA/DXA scan for age 65+ Completed 02/09/2022, Pneumococcal series for age 50+ Completed 07/20/2022, 09/11/2015, 08/30/2014 Hepatitis B series for 19+ Aged Out N o longer eligible based on patient's age to complete this topic Procedures Procedure Name Priority Date/Time Associated Diagnosis Comments GLUCOSE METER Timed 10/18/2024 11:36 AM CDT SCAN-CARDIAC STRIP 10/18/2024 10 :05 AM CDT BASIC METABOLIC PANEL Early AM 10/18/2024 7:36 AM CDT EKG 12 LEAD Early AM 10/18/2024 5:44 AM CDT SCAN-CARDIAC STRIP 10/18/2024 3: 47 AM CDT GLUCOSE METER Timed 10/17/2024 9:30 PM CDT SCAN-CARDIAC STRIP 10/17/2024 8: 27 PM CDT GLUCOSE METER Timed 10/17/2024 5:02 PM CDT ECHO TTE COMPLETE W CONTRAST Routine 10/17/2024 3:53 PM CDT SCAN-CARDIAC STRIP 10/17/2024 3: 25 PM CDT CVL CORONARY ANGIOGRAM POSS PCI Routine 10/17/2024 11:37 AM CDT Cardiovascular symptoms GLUCOSE METER Timed 10/17/2024 11:11 AM CDT SCAN CORRESP-EKG RESULTS 10/17/2024 10:46 AM CDT SCAN CORRESP-EKG RESULTS 10/17/2024 10:45 AM CDT SCAN CORRESP-IMAGING 10/17/2024 10:45 AM CDT GLUCOSE METER Timed 10/17/2024 7:36 AM CDT MAGNESIUM Today 10/17/2024 7:32 AM CDT APTT Timed 10/17/2024 7:32 AM CDT HEMOGLOBIN A1C MONITORING (POCT) Early AM 10/17/2024 7:32 AM CDT LIPID PANEL Early AM 10/17/2024 7:32 AM CDT HEMOGLOBIN Early AM 10/17/2024 7:32 AM CDT PLATELET COUNT Early AM 10/17/2024 7:32 AM CDT POTASSIUM Early AM 10/17/2024 7:32 AM CDT CREATININE Early AM 10/17/2024 7:32 AM CDT SCAN-CARDIAC STRIP 10/17/2024 7: 28 AM CDT TROPONIN T (HS) ONE TIME Timed 10/17/2024 2:26 AM CDT TROPONIN T (HS) ACUTE W/2HR REFLEX STAT 10/17/2024 12:21 AM CDT HEMOGLOBIN ESTEFANIA 10/17/2024 12:21 AM CDT PLATELET COUNT ESTEFANIA 10/17/2024 12:21 AM CDT APTT ESTEFANIA 10/17/2024 12:21 AM CDT PROTIME-INR ESTEFANIA 10/17/2024 12:21 AM CDT SCAN-CARDIAC STRIP 10/17/2024 12 :19 AM CDT GLUCOSE METER Timed 10/16/2024 11:43 PM CDT EKG 12 LEAD STAT 10/16/2024 11:34 PM CDT SCAN-RADIOLOGY REPORT 10/16/2024 12:[address] CHEST SCREENING LOW DOSE WO CONTRAST Routine 03/13/2024 8:29 AM 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 GLUCOSE METER 177(H) 65 - 100 mg/dL 10/18/2024 11:37 AM CDT [facility] [facility] Blood BLOOD SPECIMEN / Unknown 10/18/2024 11:36 AM CDT 10/18/2024 11:37 AM CDT us Anw Hospitalists Of [facility] CHEMISTRY Final Re sult [facility] [address] [place] [address], * SCAN-CARDIAC STRIP (10/18/2024 10:05 AM CDT) us Scanner OTHER Final Result * (ABNORMAL) Basic Metabolic Panel (10/18/2024 7:36 AM CDT) SODIUM 135(L) 136 - 145 mmol/L 10/18/2024 8:35 AM CDT [facility] POTASSIUM 3.9 3.5 - 5.1 mmol/L 10/18/2024 8:35 AM T [facility] CHLORIDE 100 98 - 107 mmol/L 10/18/2024 8:35 AM T [facility] CO2,TOTAL 21(L) 22 - 29 mmol/L 10/18/2024 8:35 AM T [facility] ANION GAP 14 5 - 18 10/18/2024 8:35 AM T [facility] GLUCOSE 150(H) 70 - 99 mg/dL 10/18/2024 8:35 AM T [facility] CALCIUM 8.9 8.8 - 10.4 mg/dL 10/18/2024 8:35 AM T [facility] Comment: Reference ranges for this test were updated on 01/11/2024 to reflect our healthy population more accurately. Reference range changes are not retroactively applied to results, but previous results using the same methodology can be interpreted in the context of the new reference range. BUN 20 8 - 23 mg/dL 10/18/2024 8:35 AM [facility] CREATININE 1.05(H) 0.50 - 0.90 mg/dL 10/18/2024 8:35 AM [facility] BUN/CREAT RATIO 19 10 - 20 8:35 AM [facility] eGFR 56(L) >90 mL/min/1. 73m2 10/18/2024 8:35 AM [facility] Comment:As of 2021, eG FR is calculated by the CKD-EPI creatinine equation without race adjustment. eGFR can be influenced by muscle mass, exercise, and diet. The reported eGFR is an estimation only and is only applicable if the renal function is stable. Blood BLOOD SPECIMEN / Unknown Venipuncture / Unknown 10/18/2024 7:36 AM CDT 10/18/2024 8:10 AM CDT us Kristy Wylie MD CHEMISTRY Final Result Performing Organization Address City/[facility]/ZIP Co de Phone Number [facility] [address] [place] [address], * EKG - In AM (10/18/2024 5:44 AM CDT) Only the most recent of2 resultswithin the time period is included. Interpretation Normal sinus rhythm with sinus arrhythmia Low voltage QRS Non-specific st abnormality Borderline ECG When compared with ECG of 16-Oct-2024 23:34, Questionable change in QRS axis T wave inversion no longer evident in Inferior leads BEYOND NOW Ventricular Rate 67 BPM BEYOND NOW Atrial Rate 67 BPM BEYOND NOW P-R Interval 156 ms BEYOND NOW QRS Duration 78 ms BEYOND NOW QT 444 ms BEYOND NOW QTc 469 ms BEYOND NOW P [place] 43 degrees BEYOND NOW R [place] -19 degrees BEYOND NOW T [place] 89 degrees BEYOND NOW 10/18/2024 5:44 AM CDT 10/18/2024 6:28 PM CDT us Kristy Wylie MD EKG ORD Final Result Performing Organization Address City/[facility] Co de Phone Number BEYOND NOW [place], [place] * SCAN-CARDIAC STRIP (10/18/2024 3:47 AM CDT) us Scanner OTHER Final Result * SCAN-CARDIAC STRIP (10/17/2024 8:27 PM CDT) us Scanner OTHER Final Result * ECHO TTE COMPLETE W CONTRAST (10/17/2024 3:53 PM CDT) AORTIC VALVE MEAN PG 5 mmHg EJECTION FRACTION 73 % LVEDD 4.3 cm EJECTION FRACTION 60 - 65% Anatomical Region Laterality Modality Ultrasound 10/17/2024 1:27 PM CDT Narrative 10/17/2024 4:01 PM CDT ECHOCARDIOGRAM KOBI ALBERTO : 1950 74 years Study Date: 10/17/2024 1:27:43 PM Gender: F BP: 159/96 mmHg Height: 169.00 cm BSA: 1.97 m Weight: 86.00 kg Tech: OLEGARIO Cuenca MD: FABRICIO FARIAS Site: [facility] Reading Location: ANW IP Patient Location: Inpatient. Procedure: 2D w/ Contrast, Color Doppler and Spectral Doppler. Indication for study: CAD Cardiac Rhythm: Normal sinus.Study quality: Fair. Final Impressions: 1. Normal left ventricular size, normal wall thickness, normal global systolic function, calculated EF of 73 %. 2. Right ventricular cavity size is normal, global systolic RV function is normal. 3. No pericardial effusion. 4. No significant valve disease detected. 5. Echo contrast was administered to enhance visualization of all left ventricular segments. Chamber Sizes and Function Normal left ventricular size, normal wall thickness, normal global systolic function, calculated EF of 73 %. No resting regional wall motion abnormality visualized. Left atrial size is normal. Left atrial pressure is normal. Right ventricular cavity size is normal, global systolic RV function is normal. The right atrium is normal. Right atrial volume index is 11 ml/m . Right atrial area is 11 cm . The pulmonary artery is not well visualized. The sinus of Valsalva is normal sized. The ascending aorta is normal sized. Valves, RV Pressures and Diastolic Function The aortic valve is not well visualized , no stenosis and no regurgitation. The mitral valve is sclerotic, trace mitral regurgitation. Indeterminate pattern of LV diastolic filling. The tricuspid valve is not well visualized, trace tricuspid regurgitation. The pulmonic valve is not well visualized. Unable to determine pulmonary regurgitation. Masses, Effusion, Shunts There is no pericardial effusion. The inferior vena cava is normal sized, respiratory size variation greater than 50%. No left to right shunting was detected by limited color flow Doppler interrogation of the interatrial septum. MEASUREMENTS AND CALCULATIONS 2-D Measurements and LV Function: LVID (d) 4.3 cm Planimetered EF 73 % LVID (s) 2.6 cm LV FS% (2D) 40 % IVS (d) 1.1 cm LVOT diameter 2.0 cm LVPW (d) 1.1 cm HR 75 bpm Ao Sinus 3.3 cm LA Vol index 22 ml/m2 Ao Sinus ULN 3.8 cm * RA Vol index 11 ml/m2 Asc Ao 3.6 cm RA area 11 cm Asc Ao ULN 4.0 cm * RV Basal Diam 3.1 cm * Input BSA outside of range, reported values RV Mid Diam 2.2 cm correspond to BSA = 1.9 Diastology: Mitral Tissue Doppler E Peak 0.5 m/s e', Septum 0.07 m/s A Peak 1.0 m/s e', Lateral 0.05 m/s E/A 0.4 E/e' Average 7.72 DT 205 msec Aortic Valve: Vmax 1.5 m/s NAIMA (V) 2.47 cm VTI 0.30 m NAIMA (I) 2.59 cm LVOT V max 1.2 m/s Max PG 9 mmHg LVOT VTI 0.25 m Mean PG 5 mmHg SV 79 ml Dim Index 0.82 SV index 40 ml/m CO 5.9 l/min CI 3.0 l/min/m Mitral Valve: MVA 3.7 cm MV P 1/2 59 msec MV Mean G 3 mmHg Tricuspid Valve and estimated PA pressures: TAPSE 2.3 cm Pulmonic Valve: PV AT 127 msec Contrast documentation: 2 ml diluted Definity, lot #[id number], [facility] [facility] [place] [id number] was administered peripherally to enhance visualization of all left ventricular segments. . This study was interpreted by an [facility] accredited facility. Final Procedure Note Cedrick Molina MD - 10/17/2024 ECHOCARDIOGRAM KOBI ALBERTO : 1950 74 years Study Date: 10/17/2024 1:27:43 PM Gender: F BP: 159/96 mmHg Height: 169.00 cm BSA: 1.97 m Weight: 86.00 kg Tech: OLEGARIO Referring MD: FABRICIO FARIAS Site: [facility] Reading Location: [facility] Patient Location: Inpatient. Procedure: 2D w/ Contrast, Color Doppler and Spectral Doppler. Indication for study: CAD Cardiac Rhythm: Normal sinus.Study quality: Fair. Final Impressions: 1. Normal left ventricular size, normal wall thickness, normal globalsystolic function, calculated EF of 73 %. 2. Right ventricular cavity size is normal, global systolic RV functionis normal. 3. No pericardial effusion. 4. No significant valve disease detected. 5. Echo contrast was administered to enhance visualization of all leftventricular segments. Chamber Sizes and Function Normal left ventricular size, normal wall thickness, normal globalsystolic function, calculated EF of 73 %. No resting regional wall motionabnormality visualized. Left atrial size is normal. Left atrial pressureis normal. Right ventricular cavity size is normal, global systolic RVfunction is normal. The right atrium is normal. Right atrial volume indexis 11 ml/m . Right atrial area is 11 cm . The pulmonary artery is notwell visualized. The sinus of Valsalva is normal sized. The ascendingaorta is normal sized. Valves, RV Pressures and Diastolic Function The aortic valve is not well visualized , no stenosis and noregurgitation. The mitral valve is sclerotic, trace mitral regurgitation.Indeterminate pattern of LV diastolic filling. The tricuspid valve is notwell visualized, trace tricuspid regurgitation. The pulmonic valve is notwell visualized. Unable to determine pulmonary regurgitation. Masses, Effusion, Shunts There is no pericardial effusion. The inferior vena cava is normal sized,respiratory size variation greater than 50%. No left to right shunting wasdetected by limited color flow Doppler interrogation of the interatrialseptum. MEASUREMENTS AND CALCULATIONS 2-D Measurements and LV Function: LVID (d) 4.3 cm Planimetered EF 73% LVID (s) 2.6 cm LV FS% (2D) 40% IVS (d) 1.1 cm LVOT diameter2.0 cm LVPW (d) 1.1 cm HR 75bpm Ao Sinus 3.3 cm LA Vol index 22ml/m2 Ao Sinus ULN 3.8 cm * RA Vol index 11ml/m2 Asc Ao 3.6 cm RA area 11cm Asc Ao ULN 4.0 cm * RV Basal Diam3.1 cm * Input BSA outside of range, reported values RV Mid Diam2.2 cm correspond to BSA = 1.9 Diastology: Mitral Tissue Doppler E Peak 0.5 m/s e', Septum 0.07 m/s A Peak 1.0 m/s e', Lateral 0.05 m/s E/A 0.4 E/e' Average 7.72 DT 205 msec Aortic Valve: Vmax 1.5 m/s NAIMA (V) 2.47 cm VTI 0.30 m NAIMA (I) 2.59 cm LVOT V max 1.2 m/s Max PG 9 mmHg LVOT VTI 0.25 m Mean PG 5 mmHg SV 79 ml Dim Index 0.82 SV index 40 ml/m CO 5.9 l/min CI 3.0 l/min/m Mitral Valve: MVA 3.7 cm MV P 1/2 59 msec MV Mean G 3 mmHg Tricuspid Valve and estimated PA pressures: TAPSE 2.3 cm Pulmonic Valve: PV AT 127 msec Contrast documentation: 2 ml diluted Definity, lot #[id number], [facility] [place][id number] was administered peripherally to enhance visualization of allleft ventricular segments. . This study was interpreted by an [facility] accredited facility. Final us Fabricio Farias PA ECHO ORD Final Res ult * SCAN-CARDIAC STRIP (10/17/2024 3:25 PM CDT) us Scanner OTHER Final Result * CVL CORONARY ANGIOGRAM POSS PCI (10/17/2024 11:37 AM CDT) Anatomical Region Laterality Modality Other 10/17/2024 11:3 7 AM CDT Narrative Transcriptions Kristy Wylie MD - 10/17/2024 12:26 PM CDT [facility] Cardiac Catheterization Report Name: KOBI ALBERTO Event Date: 10/17/2024 11:37 [facility] ID #: [id number] MICHI #: [id number] Patient Class: Inpatient Diagnostic Physician: KRISTY WYLIE [facility] Interventional Physician: KRISTY WYLIE [facility] Referring Physician: Date: 1950 Gender: Female Age: 74 Summary/Conclusions PRESENTATION / INDICATIONS * Non-ST elevation MD DIAGNOSTIC - CORONARY * The left main artery has minimal disease. * The LAD has mild disease. * The mid circumflex artery is severely diseased. * The RCA is dominant with severe distal disease. VASCULAR ACCESS * Using ultrasound guidance and a percutaneous technique, the right radialartery was accessed. Ultrasound was used to confirm vessel patency,localizing needle into the lumen of the vessel. An image was saved for themedical record. INTERVENTION ? Successful 2mm x 12mm Balloon and 2.25mm x 15mm Drug Eluting Stent toMid Circumflex, post stenosis 0% ? Successful 2mm x 12mm Balloon and 3mm x 22mm Drug Eluting Stent toDistal RCA, post stenosis 0% RECOMMENDATIONS & PLAN * Optimize risk factors and medications, smoking cessation. * Ticagrelor 90 mg bid for one year Consent & [place] Protocol The risks, benefits, and alternatives of the procedure were discussed withthe patient and written informed consent was obtained. [place] protocol was followed. TIME OUT conducted just prior tostarting procedure confirmed patient identity, site/side, procedure,patient position, and availability of correct equipment and implants (ifapplicable). Staff Name Title KRISTY WYLIE [employer] Vita Cole RN Nurse Angelica, Costa CVT Scrub Columba Irizarry CVT Scrub Nicola, Junior CVT Monitor AMANDA TUNNELTON Carlos Care Support Representative Procedures ? Ultrasound Guided Vascular Access ? Coronary Angiogram ? Stent Placement, Drug Eluting [PCI] ? Stent Placement, Drug Eluting Add'l Vessel [PCI] Diagnostic Findings * Left Anterior Descending ? 20% stenosis in the Proximal LAD. * Circumflex ? 95% (denovo) stenosis in the Mid Circumflex. The lesion has a TIMIflow of 2. ? 30% stenosis in the 1st Marginal. * Right Coronary Artery ? 30% stenosis in the Proximal RCA. ? 90% (denovo) stenosis in the Distal RCA. The lesion has a KALPESH flowof 2. ? 20% stenosis in the RPDA. Lesion Information Lesion # Vessel Segment Lesion Length Lesion Details Proximal LAD 1st Marginal Proximal RCA RPDA 1 Distal RCA 14 2 Mid Circumflex 9 Hemodynamics State: Baseline Pressures (mmHg) Site Systolic Diastolic End Diastolic A Wave V Wave Mean AO 149 59 73 Interventional Results * Circumflex ? Successful intervention to the Mid Circumflex 95% lesion with a finalstenosis of 0% using a 2mm x 12mm Balloon and a 2.25mm x 15mm DrugEluting Stent. The final KALPESH flow was 3. * Right Coronary Artery ? Successful intervention to the Distal RCA 90% lesion with a finalstenosis of 0% using a 2mm x 12mm Balloon and a 3mm x 22mm Drug ElutingStent. The final KALPESH flow was 3. Interventional Devices Lesion # Vessel Segment Type Name Max Pressure 1 Distal RCA Balloon BLLN EUPHORA RX [id number] <[id number]> 1 Distal RCA Drug Eluting Stent IVANA AYANA [place] RX [id number] 2 Mid Circumflex Balloon BLLN EUPHORA RX [id number] <[id number]> 2 Mid Circumflex Drug Eluting Stent IVANA AYANA [place] RX [id number] Procedure Details Estimated Blood Loss: < 30 ml Specimen Collected: None Level of Sedation Achieved: Moderate Procedure Start: 11:37 Procedure End: 12:15 Procedure Time: 38 min Fluoroscopy Time: 9.2 min Cumulative Air Kerma: 640 mGy DAP: 3003 uGy/M2 Contrast: Omnipaque (low-osmolar), 150 ml Physiologic Data Weight: 86.6 kg BSA: 1.96 m2 Vascular Access Time Access Sheath Size 11:39 Right Radial Artery, sheath inserted Complications ? No Complications ? No Complications Medications Ordered and Administered Start Time Stop Time Medication Dose Units Route Ordered By Given By 11:34 Versed 1 mg IV Kristy Wylie Tammy RN 11:34 Fentanyl 50 mcg IV Kristy Wylie Tammy RN 11:37 1% Lidocaine 1.5 ml Subcut Kristy Wylie [place] Carlos 11:40 Verapamil 3 mg IA Kristy Wylie Yale L 11:42 Heparin 5000 units IV Kristy Wylie Tammy RN 11:50 Versed 1 mg IV Kristy Wylie Tammy RN 11:50 Fentanyl 50 mcg IV Kristy Wylie Tammy RN 11:50 Ticagrelor/Brilinta 180 mg PO Kristy Wylie Tammy RN 11:55 Heparin 2000 units IV Kristy Wylie Tammy RN 12:05 Heparin 2000 units IV Kristy Wylie Tammy RN 12:09 Nitroglycerin 100 mcg IC Kristy Wylie Yale L 12:09 Nicardipine (Cardene) 0.2 mg IC Kristy Wylie, Kristy Gonzalez 12:13 Verapamil 3 mg IA Kristy Wylie Yale L I personally monitored the patient?s conscious sedation during theprocedure. Conscious sedation starts with the first sedation medication dose ofFentanyl or Versed and ends when the procedure is completed, the patientis stable for recovery status, and the physician or other qualified healthcare professional providing the sedation ends personal [id number] time with the patient. The medications listed above were verbally ordered by me and read back tome as documented above. Refer to the procedure log report for additional case details. electronically signed on 10/17/2024 12:26:41 PM with status of Final Kristy Wylie MD [facility] [address] [place] [address] (p) [phone](f) us Provider Referring CV IMAGING Edited Result - Final * SCAN CORRESP-EKG RESULTS (10/17/2024 10:46 AM CDT) Only the most recent of2 resultswithin the time period is included. Narrative 10/17/2024 10:46 AM CDT Ordered by an unspecified provider. us Other Clinical Staff OTHER Final Resul t * SCAN CORRESP-IMAGING (10/17/2024 10:45 AM CDT) Anatomical Region Laterality Modality Other Narrative 10/17/2024 10:45 AM CDT Ordered by an unspecified provider. us Other Clinical Staff OTHER Final Resul t * PLATELET COUNT (10/17/2024 7:32 AM CDT) Only the most recent of2 resultswithin the time period is included. PLATELET COUNT 327 140 - 440 thou/cu mm 10/17/2024 7:52 AM CDT [facility] MPV 9.5 6.5 - 11.0 fL 10/17/2024 7:52 AM CDT [facility] Blood BLOOD SPECIMEN / Unknown Butterfly / Unknown 10/17/2024 7:32 AM CDT 10/17/2024 7:45 AM CDT Narrative [facility] - 10/17/2024 7:52 AM CDT Every morning while on IV heparin. Necessary every morning while on IV heparin. us Eran Campbell MD HEMATOLOGY Final Resul t Performing Organization Address [facility] Co de Phone Number [facility] [address] [place] [address], [place] * HEMOGLOBIN (10/17/2024 7:32 AM CDT) Only the most recent of2 resultswithin the time period is included. HEMOGLOBIN 13.7 12.0 - 16.0 g/dL 10/17/2024 7:52 AM CDT [facility] MCV 88 80 - 100 fL 10/17/2024 7:52 AM CDT [facility] Blood BLOOD SPECIMEN / Unknown Butterfly / Unknown 10/17/2024 7:32 AM CDT 10/17/2024 7:45 AM CDT Narrative [facility] - 10/17/2024 7:52 AM CDT Every morning while on IV heparin. Necessary every morning while on IV heparin. us Eran Campbell MD HEMATOLOGY Final Resul t Performing Organization Address [facility] Co de Phone Number [facility] [address] [place] [address], [place] * POTASSIUM (10/17/2024 7:32 AM CDT) POTASSIUM 4.2 3.5 - 5.1 mmol/L 10/17/2024 8:18 AM CDT [facility] Blood BLOOD SPECIMEN / Unknown Butterfly / Unknown 10/17/2024 7:32 AM CDT 10/17/2024 7:45 AM CDT us Eran Campbell MD CHEMISTRY Final Resul t Performing Organization Address City/[facility] Co de Phone Number [facility] [address] [place] [address], [place] * (ABNORMAL) CREATININE (10/17/2024 7:32 AM CDT) eGFR 59(L) >90 mL/min/1.7 3m2 10/17/2024 8:18 AM CDT [facility] Comment:As of 2021, eG FR is calculated by the CKD-EPI creatinine equation without race adjustment. eGFR can be influenced by muscle mass, exercise, and diet. The reported eGFR is an estimation only and is only applicable if the renal function is stable. CREATININE 1.00(H) 0.50 - 0.90 mg/dL 10/17/2024 8:18 AM CDT [facility] Blood BLOOD SPECIMEN / Unknown Butterfly / Unknown 10/17/2024 7:32 AM CDT 10/17/2024 7:45 AM CDT Eran Campbell MD CHEMISTRY Final Resul t Performing Organization Address City/[facility]/ZIP Co de Phone Number [facility] [address] [place] [address], [place] * (ABNORMAL) APTT (10/17/2024 7:32 AM CDT) Only the most recent of2 resultswithin the time period is included. Pathologist [facility] APTT 77(H) 25 - 36 sec 10/17/2024 7:56 AM CDT [facility] Blood BLOOD SPECIMEN / Unknown Butterfly / Unknown 10/17/2024 7:32 AM CDT 10/17/2024 7:45 AM CDT Narrative [facility] - 10/17/2024 7:56 AM CDT Therapeutic Range: 59-89 seconds us Eran Campbell MD HEMATOLOGY Final Resul t Performing Organization Address City/[facility]/ZIP Co de Phone Number [facility] [address] [place] [address], [place] * MAGNESIUM (10/17/2024 7:32 AM CDT) Pathologist [facility] MAGNESIUM 2.1 1.6 - 2.4 mg/dL 10/17/2024 8:18 AM CDT [facility] Blood BLOOD SPECIMEN / Unknown Butterfly / Unknown 10/17/2024 7:32 AM CDT 10/17/2024 7:45 AM CDT Stan Moses MD CHEMISTRY Final Result Performing Organization Address [facility] de Phone Number [facility] [address] [place] [address], * (ABNORMAL) HEMOGLOBIN A1C MONITORING (POCT) (10/17/2024 7:32 AM CDT) HEMOGLOBIN A1C MONITORING (POCT) 7.2(H) <=6.4 % 10/17/2024 4:01 PM CDT [facility] Blood BLOOD SPECIMEN / Unknown Butterfly / Unknown 10/17/2024 7:32 AM CDT 10/17/2024 7:45 AM CDT Narrative [facility] - 10/17/2024 4:01 PM CDT (<=6.9%) Indicates good control (7.0% to 7.9%) Indicates fair control (>=8.0%) Indicates poor control NOTE: These thresholds are guidelines and individual targets may vary. Falsely low levels may be seen with: Recent Transfusion, Recent Significant Blood Loss, Hemolytic Diseases, or Falsely elevated levels may be seen with: Untreated Anemias, Splenectomy Eran Campbell MD CHEMISTRY Final Resul t Performing Organization Address [facility] de Phone Number [facility] [address] [place] [address], * (ABNORMAL) Lipid Panel AM (10/17/2024 7:32 AM CDT) CHOLESTEROL,TOTAL 222(H) 100 - 199 mg/dL 10/17/2024 8:18 AM CDT [facility] Comment: Cholesterol, Total Reference Ranges Desirable <200 mg/dL Borderline 200-239 mg/dL High >=240 mg/dL TRIGLYCERIDES 196(H) <150 mg/dL 10/17/2024 8:18 AM CDT [facility] HDL CHOLESTEROL 40(L) >40 mg/dL 8:18 AM CDT [facility] NON-HDL CHOLESTEROL 182(H) <145 mg/dl 10/17/2024 8:18 AM CDT [facility] CHOL/HDL RATIO 5.55(H) <4.50 10/17/2024 8:18 AM CDT [facility] LDL CHOLESTEROL 143(H) <=130 mg/dL 10/17/2024 8:18 AM CDT [facility] VLDL CHOLESTEROL 39(H) <=30 mg/dL 10/17/2024 8:18 AM CDT [facility] PROVIDER ORDERED STATUS RANDOM 10/17/2024 8:18 AM CDT [facility] Blood BLOOD SPECIMEN / Unknown Butterfly / Unknown 10/17/2024 7:32 AM CDT 10/17/2024 7:45 AM CDT us Eran Campbell MD CHEMISTRY Final Resul t Performing Organization Address City/State/[facility] Co de Phone Number [facility] [address] [place] [id number], * SCAN-CARDIAC STRIP (10/17/2024 7:28 AM CDT) us Scanner OTHER Final Result * (ABNORMAL) TROPONIN T (HS) ONE TIME (10/17/2024 2:26 AM CDT) TROPONIN T HS 6,541(H) 6-10 ng/L ng/L 10/17/2024 3:25 AM CDT [facility] Blood BLOOD SPECIMEN / Unknown Venipuncture / Unknown 10/17/2024 2:26 AM CDT 10/17/2024 2:55 AM CDT us Eran Campbell MD CHEMISTRY Final Resul t [facility] [address] [place] [address], [place] * (ABNORMAL) TROPONIN T (HS) ACUTE W/2HR REFLEX (10/17/2024 12:21 AM CDT) TROPONIN T HS 6,706(H) 6-10 ng/L ng/L 10/17/2024 1:05 AM CDT [facility] Blood BLOOD SPECIMEN / Unknown Venipuncture / Unknown 10/17/2024 12:21 AM CDT 10/17/2024 12:43 AM CDT Narrative [facility] - 10/17/2024 1:05 AM CDT hs-cTnT (Elecsys Troponin T Gen 5) concentration (s) above the sex-specific 99th percentile (16 ng/L or greater for males or 11 ng/L or greater for females) are indicative of myocardial injury. If initial hs-cTnT <=100 ng/L at presentation, a 0h/2h ABSOLUTE (ng/L) delta change (rising or falling) of >=10 ng/L suggests a significant change, whereas a 0h/2h delta change <=3 ng/L suggests no significant change. If initial hs-cTnT >100 ng/L at presentation, a 0h/2h/ RELATIVE (percent, %) delta change of 20% is suggested to distinguish patients with acute vs. chronic myocardial injury. There are multiple etiologies that can cause hs-cTnT increases above the 99th percentile (myocardial injury) other than acute myocardial infarction. Clinical context and careful clinical evaluation are critical for diagnosis and risk-stratification. The diagnosis of acute myocardial infarction requires a rising and/or falling pattern in hs-cTnT concentrations with at least one value above the sex-specific 99th percentile PLUS at least one of the following clinical criteria: ischemic symptoms, new or presumed new significant ST-T wave changes or new LBBB, development of pathological Q waves, imaging evidence of new loss of viable myocardium or new regional wall motion abnormality, or identification of intracoronary atherothrombosis or an acute angiographic culprit on coronary angiography. In appropriate low-risk patients with a non-ischemic electrocardiogram without active chest pain with a symptom onset >3-hours without recurrence, a single initial hs-cTnT<6 ng/L identifies patient with a very low risk in emergency department patient population. us Eran Campbell MD CHEMISTRY Final Resul t Performing Organization Address [facility] Co de Phone Number [facility] [address] [place] [address], [place] * PROTIME-INR (10/17/2024 12:21 AM CDT) INR 1.0 <1.3 10/17/2024 12:56 AM CDT [facility] PROTIME 11.5 10.6 - 12.4 sec 10/17/2024 12:56 AM CDT [facility] Blood BLOOD SPECIMEN / Unknown Venipuncture / Unknown 10/17/2024 12:21 AM CDT 10/17/2024 12:43 AM CDT Narrative [facility] - 10/17/2024 12:56 AM CDT Therapeutic Range 2.0-3.0 for most anticoagulated patients 2.5-3.5 or 4.0 for high risk patients The INR is only used for patients on stable oral anticoagulant therapy. It makes no significant contribution to the diagnosis or treatment of patients whose Protime is prolonged for other reasons. INR results are increased when heparin levels exceed 1.0 U/mL, which corresponds to an aPTT >125 seconds if the patient is on UFH. us Eran Campbell MD HEMATOLOGY Final Resul t Performing Organization Address [facility] Co de Phone Number [facility] [address] [place] [id number], [place] * SCAN-CARDIAC STRIP (10/17/2024 12:19 AM CDT) us Scanner OTHER Final Result * SCAN-RADIOLOGY REPORT (10/16/2024 12:00 AM CDT) Anatomical Region Laterality Modality Other us Scanner OTHER Final Result * CT CHEST SCREENING LOW DOSE WO CONTRAST (03/13/2024 8:29 AM 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) Anatomical Region Laterality Modality Computed Tomogra phy Impressions 03/21/2024 10:47 AM 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 Stable scattered sub 6 mm indeterminate pulmonary [...] 1:45:49 PM /sp Narrative 03/21/2024 10:47 AM 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 For Patients: As a result of the Cures Act, medical imaging exams and procedure [...] Khan MD CT Final Result * (ABNORMAL) XR DXA BONE DENSITY 2 SITES AXIAL (02/09/2022 9:28 AM 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) Anatomical Region Laterality Modality Spine, HIPS, HIPL, HIPR Other Impressions 02/10/2022 12:48 PM 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 Osteopenia. RECOMMENDATIONS: The National Osteoporosis Foundation recommends [...] recommended in 3-5 years. Mirian Ngo PA-C [facility] 02/10/2022 Narrative 02/10/2022 12:48 PM 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 For Patients: Results are automatically released to your [facility] ([employer]) account once available, in compliance with federal regulations. This means that you may see your results before your provider has had a chance to review them. Please allow 2-3 business days for your provider to comment on the results. XR DXA Bone Mineral Density (BMD) EXAM LOCATION: [facility] [address] [facility] [address] PATIENT NAME: Kobi Alberto DATE OF : 1950 EXAM DATE: 02/09/2022 REQUESTING PROVIDER: Claus Khan MD GENDER AT : female HEIGHT: 5' 6.85 (01/12/2022) WEIGHT: 194 lb 9.6 oz (01/12/2022) MENOPAUSAL STATUS: Postmenopausal RACE/ETHNICITY: White RISK FACTORS: Smoking (current) CURRENT MEDICATION FOR BONE LOSS: NONE INDICATION: Post-Menopause COMPARISON DATE(S): 2015 DXA scans are compared to prior studies for a patient only when the two (or more) studies were performed on the same scanner. It is not possible to compare data generated on one scanner to data from another because there are not standards in DXA equipment. This applies even if the two scanners are made by the same supervisor gluing. PROCEDURE: Dual-energy x-ray absorptiometry performed with routine [...] 9.7%. 10-year probability of hip fracture: 2.2%. Result [facility] Claus Khan MD DEXA Final Result * COLONOSCOPY SCREENING (08/11/2021 12:00 AM CDT) Claus Khan MD GI PROCEDURE ORD Final Result * ANTI HCV (12/15/2018 8:09 AM CDT) HEPATITIS C ANTIBODY Non-React emy Non-React emy 12/20/2018 9:40 AM CDT [facility] Comment:Antibodies to HCV no t detected; does not exclude the possibility of exposure to HCV. Blood BLOOD SPECIMEN / Unknown Venipuncture / Unknown 12/15/2018 8:09 AM CDT 12/15/2018 8:09 AM CDT Claus Khan MD SEND OUTS Final Result [facility] [address] [place] [address], [place] from Last 3 Months or Most Recently Relevant to Health Maintenance Insurance [employer] [place] [place] ONLY MEDICARE PART B HB ONLY [place] [place] ONLY MEDICARE PART A HB ONLY Advance Directives * Full Code (Latest Code Status on File) Date Activated Date Inactivated Comments 10/17/2024 12:06 AM 10/18/2024 2:54 PM Question Answer Comments Code Status Discussion: Reviewed Preferences * Full Code Date Activated Date Inactivated Comments 10/16/2024 11:29 PM 10/17/2024 12:06 AM Question Answer Comments Code Status Discussion: Unable to Assess Preferences, Provider to review later Care Teams Mid Level Java Developer Relationship Specialty Start Date End Date Claus Khan MD [address] [place] [address] PCP - General Family Practice 08/18/13
[2024-10-20 14:40] LABS: Hematocrit 42.3 % (33.0-51.0); Hemoglobin* 14.2 gm/dL (12.0-16.0); Immature Granulocytes Abs Auto 0.08 K/uL (0.00-0.30); Immature Granulocytes Pct Auto 0.9 %; Mean Corpuscular HGB Conc 34 gm/dL (32-36); Mean Corpuscular Hemoglobin 29 pg (26-34); Mean Corpuscular Volume 87 fL (80-100); RDW Coefficient of Variation % 13.0 % (11.5-15.5); Red Blood Count 4.86 m/uL (4.00-5.20); White Blood Count* 9.00 K/uL (4.50-11.00)
[2024-10-20 14:42] LABS: Lactate* 1.0 mmol/L (0.5-1.9)
[2024-10-20 14:44] LABS: Troponin, Point-of-Care* 1.41 ng/ml (0.01-0.04)
[2024-10-20 14:49] LABS: Lymphocytes Absolute Auto 0.80 K/uL (0.90-2.90); Slide Review Reflex No
--- NOTE | 2024-10-20 15:13 | ED_ITS ---
HPI - General Adult General Chief complaint: Neck Injury/Pain Stated complaint: had stents put in and is feeling unwell Time Seen by Provider: 10/20/24 14:10 Source: patient Mode of arrival: ambulatory Limitations: no limitations History of Present Illness HPI narrative: Anusha 74-year-old female coming in today complaining of neck pressure that started around 10:00 a.m. Patient recently was diagnosed with a non ST elevation TN and stents placed on Wednesday. Patient had a drug-eluting stent to the mid circumflex with post stenosis at 0%, and a stent to the distal RCA with post stenosis at 0%. Her symptoms began with chest pain and bilateral neck pressure at that time. Today she does not have the chest pain. She does not feel short of breath. She is not dizzy, lightheaded or diaphoretic. Appetite has been normal since her procedure. She denies coughing. She has not smoked in the last 2 days and does have a patch on. Around noon today she did take a sublingual nitro which did alleviate her symptoms of little bit. Patient is on aspirin 81 mg daily, carvedilol 6.25 mg b.i.d., ticagrelor 90 mg b.i.d. and rosuvastatin 40 mg daily. Related Data Home Medications ?Medication ?Instructions ?Recorded ?Confirmed amlodipine 10 mg tablet 10 mg PO DAILY 11/10/2310/06 levothyroxine 100 mcg tablet 100 mcg PO DAILY 11/10/23 10/20/24 lisinopril 40 mg tablet 40 mg PO DAILY 11/10/2310/06 carvedilol 6.25 mg tablet 6.25 mg PO BID 10/20/2410/06 nitroglycerin 0.4 mg sublingual mg sublingual 10/20/24 tablet rosuvastatin 40 mg tablet 40 mg PO DAILY 10/20/2410/06 ticagrelor 90 mg tablet PO 10/20/24 Allergies Allergy/AdvReac Type Severity Reaction Status Date / Time No Known Drug Allergies Allergy Verified 10/20/24 13:59 Review of Systems Status of ROS: Reports: 10 or more systems reviewed and unremarkable except as noted in History and below FORMERLY [facility] PFS Social History Smoking Status: Current every day smoker What tobacco products do you use: cigarettes Do you use any of these nicotine containing products: None Second hand tobacco smoke exposure: No How often do you have a drink containing alcohol: never AUDIT-C Alcohol total score: 0 Non-prescribed substance use: denies use Exam Narrative: Exam Narrative: Overweight, well-developed patient in no acute distress. Alert and oriented. Answers questions appropriately. Mood and affect are appropriate. Thoughts are goal oriented and rational. No tangential or magical thinking noted. Patient speaks in full sentences without needing to catch her breath. Patient does not appear ill or toxic. HEENT: Normocephalic atraumatic. Pupils are equally round reactive to light. Extraocular muscles are intact. Conjunctivae are moist without any icterus noted. Moist mucous membranes. Posterior pharynx is normal. Neck is supple. Cardiovascular: Heart is regular rate and rhythm S1 and S2 are present without any murmurs. Lungs: Bibasilar crackles, right greater than the left. Abdomen: Soft and nontender nondistended with normal bowel sounds. Protuberant. Extremities: Bilateral lower extremities are without edema. Normal DP and PT pulses. Bruising at the wrists as expected postprocedure. Skin: Well perfused. Const: Vital Signs, click to edit/add: Vital Signs - 24 hr 10/20/24 13:57 10/20/24 14:19 10/20/24 14:20 Temperature 98.2 F Pulse Rate 89 88 Pulse Rate [Pulse Oximeter] 92 Respiratory Rate 18 14 22 Blood Pressure 174/77 H Blood Pressure [Ri ght Upper Arm] 178/79 H Pulse Oximetry 99 97 97 Oxygen Delivery Me thod Room Air 10/20/24 14:30 10/20/24 14:32 10/20/24 14:33 Temperature Pulse Rate 89 91 87 Pulse Rate [Pulse Oximeter] Respiratory Rate 17 18 14 Blood Pressure 170/78 H Blood Pressure [Ri ght Upper Arm] Pulse Oximetry 99 97 97 Oxygen Delivery Me thod 10/20/24 14:35 10/20/24 14:45 10/20/24 15:00 Temperature Pulse Rate 83 Pulse Rate [Pulse Oximeter] Respiratory Rate 19 18 Blood Pressure Blood Pressure [Ri ght Upper Arm] Pulse Oximetry 98 96 Oxygen Delivery Me thod 10/20/24 15:02 10/20/24 15:03 10/20/24 15:15 Temperature Pulse Rate 79 80 75 Pulse Rate [Pulse Oximeter] Respiratory Rate 22 16 17 Blood Pressure 175/82 H Blood Pressure [Ri ght Upper Arm] Pulse Oximetry 96 97 98 Oxygen Delivery Me thod 10/20/24 15:42 10/20/24 15:45 10/20/24 16:00 Temperature Pulse Rate 79 79 88 Pulse Rate [Pulse Oximeter] Respiratory Rate 22 15 19 Blood Pressure Blood Pressure [Ri ght Upper Arm] Pulse Oximetry 97 97 98 Oxygen Delivery Me thod 10/20/24 16:02 10/20/24 16:15 10/20/24 16:30 Temperature Pulse Rate 86 83 83 Pulse Rate [Pulse Oximeter] Respiratory Rate 15 19 13 Blood Pressure 168/81 H Blood Pressure [Ri ght Upper Arm] Pulse Oximetry 98 98 97 Oxygen Delivery Me thod 10/20/24 16:32 10/20/24 16:45 10/20/24 17:00 Temperature Pulse Rate 85 83 84 Pulse Rate [Pulse Oximeter] Respiratory Rate 13 14 19 Blood Pressure 160/74 H Blood Pressure [Ri ght Upper Arm] Pulse Oximetry 98 98 97 Oxygen Delivery Me thod Course Course ED Course: EKG, read by me, shows normal sinus rhythm with a pulse of 89. Normal QRS, QTC and IN intervals. Initial point of care troponin was elevated at 1.41 and troponin I was elevated at 0.72. See BC is unremarkable. Chemistry show mild hyponatremia with a sodium of 130. Otherwise unremarkable. Glucose 169. CRP 1.2. BNP 1300. Chest x-ray, read by me, does not show any acute pathology. Repeat EKG shows sinus rhythm with sinus arrhythmia, pulse 72. Normal Q are as, QTC and IN intervals. Repeat troponin 0.62. 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 In the meantime, did repeat sublingual nitro for the mild neck discomfort she is having. This does help. Third trop lower still at 0.57. Vital Signs Vital signs: Initial Vital Signs Temperature 98.2 F 10/20/24 13:57 Temperature Source Temporal Artery Scan 10/20/24 13:57 Pulse Rate 92 10/20/24 13:57 Respiratory Rate 18 10/20/24 13:57 Blood Pressure 178/79 H 10/20/24 13:57 Blood Pressure Mean 112 H 10/20/24 13:57 Blood Pressure Position Sitting 10/20/24 13:57 Pulse Oximetry 99 10/20/24 13:57 Oxygen Delivery Method Room Air 10/20/24 13:57 Vital Signs Temperature 98.2 F 10/20/24 13:57 Pulse Rate 92 10/20/24 13:57 Respiratory Rate 18 10/20/24 13:57 Blood Pressure 178/79 H 10/20/24 13:57 Pulse Oximetry 99 10/20/24 13:57 Oxygen Delivery Method Room Air 10/20/24 13:57 Temperature 98.2 F 10/20/24 13:57 Pulse Rate 84 10/20/24 17:00 Respiratory Rate 19 10/20/24 17:00 Blood Pressure 160/74 H 10/20/24 16:32 Pulse Oximetry 97 10/20/24 17:00 Oxygen Delivery Method Room Air 10/20/24 13:57 Medications Administered Medications: Discontinued Medications Generic Name Dose Route Start Last Admin Trade Name Freq PRN Reason Stop Dose Admin Nitroglycerin 0.4 mg 10/20/24 17:40 10/20/24 17:48 Nitroglycerin 0.4 Mg Tab.Subl SUBLINGUAL 10/20/24 17:41 0.4 mg ONCE ONE Administration Medical Decision Making MDM Narrative Medical decision making narrative: Elevated troponins with neck discomfort post coronary angiogram. Patient will b e transferred to [facility] for further management. Lab Data Lab results reviewed: Yes I reviewed the patient's lab results Labs: Lab Results 10/20/24 10/20/24 10/20/24 Range/Units 14:11 14:38 16:00 WBC 9.00 (4.50-11.00) K/uL RBC 4.86 (4.00-5.20) m/uL Hgb 14.2 (12.0-16.0) gm/dL Hct 42.3 (33.0-51.0) % MCV 87 (80-100) fL MCH 29 (26-34) pg MCHC 34 (32-36) gm/dL RDW Coeff of Alo 13.0 (11.5-15.5) % Plt Count 382 (140-440) K/uL Neut % (Auto) 80.5 H (42.0-72.0) % Lymph % (Auto) 9.2 L (20-44) % Flag[place] % (Auto) 4.4 (0.0-11.0) % Eos % (Auto) 4.3 (0.0-7.0) % Baso % (Auto) 0.7 (0.0-3.0) % Neut # (Auto) 7.20 H (1.7-7.0) K/uL Lymph # (Auto) 0.80 L (0.90-2.90) K/uL Flagler # (Auto) 0.40 (0.00-0.90) K/UL Eos # (Auto) 0.39 (0.00-0.50) K/uL Baso # (Auto) 0.06 (0.00-0.30) K/uL Abs Immat Gran (auto) 0.08 (0.00-0.30) K/uL Imm/Tot Granulo (auto) 0.9 % Sodium 130 L (135-149) mmol/L Potassium 4.8 (3.6-5.1) mmol/L Chloride 99 (96-114) mmol/L Carbon Dioxide 23 (20-32) mmol/L Anion Gap 8 (7-15) mEq/L BUN 29 (7-30) mg/dL Creatinine 1.0 (0.5-1.5) mg/dL Estimated GFR 59 ml/min Glucose 169 H (60-115) mg/dL Lactate 1.0 (0.5-1.9) mmol/L Calcium 10.0 (8.4-10.6) mg/dL Magnesium 1.9 (1.5-2.6) mg/dL Troponin I 0.72 H* 0.62 H* (0.01-0.04) ng/mL C-Reactive Protein 1.2 H (0.5-1.0) mg/dL NT-Pro-B Natriuret Pep 1300 H (See Note) pg/mL POC Troponin I 1.41 H (0.01-0.04) ng/ml 10/20/24 Range/Units 18:00 WBC (4.50-11.00) K/uL RBC (4.00-5.20) m/uL Hgb (12.0-16.0) gm/dL Hct (33.0-51.0) % MCV (80-100) fL MCH (26-34) pg MCHC (32-36) gm/dL RDW Coeff of Alo (11.5-15.5) % Plt Count (140-440) K/uL Neut % (Auto) (42.0-72.0) % Lymph % (Auto) (20-44) % Flag[place] % (Auto) (0.0-11.0) % Eos % (Auto) (0.0-7.0) % Baso % (Auto) (0.0-3.0) % Neut # (Auto) (1.7-7.0) K/uL Lymph # (Auto) (0.90-2.90) K/uL Flagler # (Auto) (0.00-0.90) K/UL Eos # (Auto) (0.00-0.50) K/uL Baso # (Auto) (0.00-0.30) K/uL Abs Immat Gran (auto) (0.00-0.30) K/uL Imm/Tot Granulo (auto) % Sodium (135-149) mmol/L Potassium (3.6-5.1) mmol/L Chloride (96-114) mmol/L Carbon Dioxide (20-32) mmol/L Anion Gap (7-15) mEq/L BUN (7-30) mg/dL Creatinine (0.5-1.5) mg/dL Estimated GFR ml/min Glucose (60-115) mg/dL Lactate (0.5-1.9) mmol/L Calcium (8.4-10.6) mg/dL Magnesium (1.5-2.6) mg/dL Troponin I 0.57 H* (0.01-0.04) ng/mL C-Reactive Protein (0.5-1.0) mg/dL NT-Pro-B Natriuret Pep (See Note) pg/mL POC Troponin I (0.01-0.04) ng/ml Imaging Data Chest x-ray: Attestation: I have reviewed the pertinent imaging results. Radiologist's impression: TECHNIQUE: Two view(s) of the chest FINDINGS: The cardiomediastinal silhouette and pulmonary vasculature are unremarkable. There is no focal airspace consolidation, pleural effusion, or pneumothorax. No displaced fractures. IMPRESSION: No acute cardiopulmonary process. ECG Data Attestation: I personally reviewed and interpreted this ECG as follows: Discharge Plan Discharge Clinical Impression: Acute non-ST elevation myocardial infarction (NSTEMI) Patient Disposition: Amie Rojas Condition: Stable Prescriptions: No Action lisinopril 40 mg tablet 40 mg PO DAILY amlodipine 10 mg tablet 10 mg PO DAILY levothyroxine 100 mcg tablet 100 mcg PO DAILY carvedilol 6.25 mg tablet 6.25 mg PO BID nitroglycerin 0.4 mg tablet, sublingual sublingual rosuvastatin 40 mg tablet 40 mg PO DAILY ticagrelor 90 mg tablet PO Stand Alone Forms: nextsocial Info Instructions
--- NOTE | 2024-10-20 15:15 | CRLHL7_ITS ---
For Patients: As a result of the Cures Act, medical imaging exams and procedure reports are released immediately into your electronic medical record. You may view this report before your referring provider. If you have questions, please contact your health care provider. INDICATION: : CHEST PAIN, POST HEART STENTS COMPARISON: Chest radiograph on October 16, 2024 TECHNIQUE: Two view(s) of the chest FINDINGS: The cardiomediastinal silhouette and pulmonary vasculature are unremarkable. There is no focal airspace consolidation, pleural effusion, or pneumothorax. No displaced fractures. IMPRESSION: No acute cardiopulmonary process. Dictated by Huy Lei MD @ 10/20/2024 3:56:17 PM (Electronically Signed)
[2024-10-20 15:29] LABS: Chloride* 99 mmol/L (96-114); Sodium* 130 mmol/L (135-149)
[2024-10-20 15:31] LABS: Blood Urea Nitrogen* 29 mg/dL (7-30); Creatinine* 1.0 mg/dL (0.5-1.5); Estimated Glomerular Filt Rate 59 ml/min
[2024-10-20 15:32] LABS: Anion Gap 8 mEq/L (7-15); Calcium* 10.0 mg/dL (8.4-10.6); Carbon Dioxide* 23 mmol/L (20-32); Glucose* 169 mg/dL (60-115)
[2024-10-20 15:40] LABS: Potassium* 4.8 mmol/L (3.6-5.1)
[2024-10-20 15:45] LABS: NT Pro B Type NatriureticPept* 1300 pg/mL (See Note)
[2024-10-20] MEDS: NITROGLYCERIN 0.4 MG TAB.SUBL SUBLINGUAL (17:48)
--- NOTE | 2024-10-20 19:35 | ED.NURSE ---
Report to JACKSON Pardo at [facility].
--- NOTE | 2024-10-20 19:58 | ED.NURSE ---
Report to EMS for transfer. All belongings remain w/ patient.
== END 2024-10-20 20:08 | disposition short-term general hospital (02) ==
PROVIDERS: Emergency Provider Family Medicine; PCP Family Medicine
DX: I21.4 Non-ST elevation (NSTEMI) myocardial infarction (principal)
CPT/HCPCS: 36415; 71046; 80048; 83605; 83735; 83880; 84484; 85025; 86140; 93005; 94761; 99284; 99285; A9270

== ENCOUNTER 2024-10-20 19:58 | Outpatient (CLI) | payer MEDICARE, BC, SELFPAY | END 2024-10-20 19:59 | disposition home or self-care (01) | LOC: AMB 10-23 11:25 | PROVIDERS: PCP Family Medicine; Visit Provider Emergency Medicine | DX: I21.4 Non-ST elevation (NSTEMI) myocardial infarction (principal) | CPT/HCPCS: A0425; A0427 ==

== ENCOUNTER 2024-11-01 17:32 | Emergency (ER) | payer MEDICARE, BC, SELFPAY ==
--- OUTSIDE RECORDS SUMMARY | 2024-11-01 17:33 | XMS_ITS | Clinical Summary ---
Author Organization [facility] Address [address] [place] [address] Care Team Providers Care Combine Inspector Name Role Phone Claus Khan MD Primary [...] oral route once daily with food 0 008 Active blood sugar diagnostic (Contour Next Test Strips) stripIndications: diabetes mellitus Dispense test strips covered by the patient insurance. Test 1 times per day. 100 Each 12 023 Active lancets (Microlet Lancet)Indication s:diabetes mellitus For testing blood sugars once per day 100 Each 023 Active levothyroxine (SYNTHROID) 100 mcg tabletIndications :Acquired hypothyroidism Take 1 Tablet (100 mcg) by mouth before breakfast. 90 Tablet 3 024 Active amLODIPine (NORVASC) 10 mg tabletIndications :Essential hypertension Take 1 Tablet (10 mg) by mouth once daily. 90 Tablet 3 024 Active lisinopriL (PRINIVIL; ZESTRIL) 40 mg tabletIndications :Essential hypertension TAKE 1 TABLET(40 MG) BY MOUTH EVERY DAY 90 Tablet 2 025 Active triamcinolone (ARISTOCORT; KENALOG) 0.1 % cream Apply topically to affected area(s) 3 times daily if needed (itching). Active rosuvastatin (CRESTOR) 40 mg tabletIndications :NSTEMI (non-ST elevated myocardial infarction) (HC) Take 1 Tablet (40 mg) by mouth at bedtime. 90 Tablet 3 10/19/19 25 12:25 PM CDT 025 Active aspirin chewable 81 mg tabletIndications :NSTEMI (non-ST elevated myocardial infarction) (HC) Take 1 Tablet (81 mg) by mouth or nasogastric tube once daily. 90 Tablet 3 10/19/19 25 12:25 PM CDT 025 Active nitroglycerin 0.4 mg sublingual tabletIndications :NSTEMI (non-ST elevated myocardial infarction) (HC) Place 1 Tablet (0.4 mg) under the tongue every 5 minutes if needed for Chest pain 1st choice (Hold if SBP less than 90 mmHg). Up to 3 tablets in 15 minutes. 25 Tablet 3 10/19/19 25 12:25 PM CDT 025 Active ticagrelor (BRILINTA) 90 mg tabletIndications :NSTEMI (non-ST elevated myocardial infarction) (HC) Take 1 Tablet (90 mg) by mouth two times daily. 180 Tablet 3 10/19/19 25 12:25 PM CDT 025 Active nicotine 21 mg/24 hr (NICODERM; HABITROL) 21 mg/24 hr patchIndications: NSTEMI (non-ST elevated myocardial infarction) (HC) Apply 1 Patch on dry, clean, hairless skin once daily if needed for Nicotine Craving. 025 Active carvediloL (COREG) 12.5 mg tabletIndications :NSTEMI (non-ST elevated myocardial infarction) (HC),HTN (hypertension) Take 1 Tablet (12.5 mg) by mouth two times daily with meals. 180 Tablet 3 025 Active hydroCHLOROthiazi de 25 mg tabletIndications :HTN (hypertension) Take 1 Tablet (25 mg) by mouth once daily. 90 Tablet 3 025 Active triamcinolone (ARISTOCORT; KENALOG) 0.1 % creamIndications: Chronic eczema Apply topically to affected area(s) three times daily. As needed to effected areas. 80 g 022 2024 Discontinued(P harmacist change per medication history (E-cancel not sent)) fluocinolone 0.01 % 0.01 % otic solutionIndicatio ns:Eczema of both external ears Use 5 drops in affected ear(s) 1-2x daily for 7 days when your ears itch. 20 mL 3 023 2024 Discontinued(P harmacist change per medication history (E-cancel not sent)) dapagliflozin propanediol (FARXIGA) 5 mg tabletIndications :Type 2 diabetes mellitus without complication, without long-term current use of insulin (HC) Take 1 Tablet (5 mg) by mouth once daily. 90 Tablet 1 024 2024 Discontinued(* Patient states no longer taking) rosuvastatin (CRESTOR) 5 mg tabletIndications :Hyperlipidemia, unspecified hyperlipidemia type Take 1 Tablet (5 mg) by mouth at bedtime. 30 Tablet 11 024 2024 Discontinued(P harmacist change per medication history (E-cancel not sent)) hydroCHLOROthiazi de 25 mg tabletIndications :Essential hypertension TAKE 1 TABLET(25 MG) BY MOUTH EVERY DAY 90 Tablet 2 025 2024 Discontinued(* IP Discontinued) carvediloL (COREG) 6.25 mg tabletIndications :NSTEMI (non-ST elevated myocardial infarction) (HC),HTN (hypertension) Take 1 Tablet (6.25 mg) by mouth two times daily with meals. 180 Tablet 1 10/19/19 25 12:25 PM CDT 025 2024 Discontinued carvediloL (COREG) 6.25 mg tabletIndications :NSTEMI (non-ST elevated myocardial infarction) (HC),HTN (hypertension) Take 2 Tablets (12.5 mg) by mouth two times daily with meals. 025 2024 Discontinued(R eorder (E-cancel not sent)) Active Problems Problem Noted Date Diagnosed Date Anxiety 11/01/2024 Stage 3a chronic kidney disease 10/23/2024 S/P IVANA mCX, dRCA 10/17/2024 10/21/2024 Coronary artery disease invo lving [place] coronary artery of [place] heart with unstable angina pectoris 10/20/2024 Hypothyroidism (acquired) 10/16/2024 Primary hypertension 10/16/2024 NSTEMI [...] Encounters Date Type Department Care Team Description 11/01/2024 11:45 AM CDT Office Visit [facility] [address] [place] [address] Claus Khan MD Follow Up 10/31/2024 Travel 10/23/2024 11:20 AM CDT Office Visit [facility] [address] [place] [address] Claus Khan MD Hospital F/U ([facility], 10/16/2024, [facility], 10/16/2024 - 10/18/2024, [facility] and [facility], 10/20/2024, NSTEMI) 10/23/2024 Patient Outreach [facility] [address] [place] [address] Riat Rivera, RN Primary RN Care Management; Hospital F/U (Lace=67) 10/22/2024 Travel 10/20/2024 8:57 PM CDT - 10/21/2024 11:40 AM CDT Hospital Encounter [facility] [address] [place] [address] [facility], [facility] Hospitalists Of Eran Campbell MD Berglund, Ryan Berger MD NSTEMI (non-ST elevated myocardial infarction) (HC); HTN (hypertension) Discharge Disposition: Home Self Care 10/20/2024 Orders Only [facility] Scanner 1 scan: (1-Ord) [facility], MULTIPLE LAB TESTS RESULTS, 10/20/2024 10/20/2024 Orders Only [facility] Scanner 1 scan: (1-Ord) [place], XR CHEST 2V, 10/20/2024 10/19/2024 Patient Outreach [facility] [address] [place] [address] Emeli Avila, [facility] F/U; Primary RN Care Management (LACE 68 ) 10/17/2024 Travel 10/16/2024 11:06 PM CDT - 10/18/2024 12:44 PM CDT Hospital Encounter [facility] [address] [address] [facility], [facility] Hospitalists Of Eran Campbell MD Tetzlaff, Stan Sehehan MD NSTEMI (non-ST elevated myocardial infarction) (HC) (Primary Dx); Cardiovascular symptoms; S/P drug eluting coronary stent placement; HTN (hypertension) Discharge Disposition: Home Self Care 10/16/2024 Orders Only [facility] Scanner 1 scan: (1-Ord) [place], CHEST 1V PORTABLE, 10/16/2024 10/16/2024 Telephone [facility] [address] [place], [place] [id number] Stan Ceballos MD from Last 3 Months Immunizations Immunization Administration Dates Next Due COVID-19 VACCINE SPIKEVAX (M ODERNA 50MCG/0.5ML) 12YO+ PFS 02/23/2024,01/25/2023 COVID-19 vaccine (SnapTellBio NTech 30mcg/0.3mL) 12YO+ BIVALENT PF, MDV 07/20/2022,01/12/2022 COVID-19 vaccine (SnapTellBio NTech 30mcg/0.3mL) 12YO+ HILTON-SUCROSE PF, MDV 07/14/2021 COVID-19 vaccine (SnapTellBio NTech 30mcg/0.3mL) PF, MDV 01/01/2021 Influenza A [...] Types Packs/Day Years Used Date Smoking Tobacco: Former Cigarettes 1 35.2 0 1989 - 10/16/2024 Smokeless Tobacco: Never Tobacco Cessation:Counseling Given: No Alcohol Use Standard Drinks/Week Comments [...] on file Legal Sex Female 5:25 AM DONOR SUPPORT TECHNICIAN Gender Identity Not on file Sexual Orientation Not on file 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 on file Not on file Not [...] Sign Reading Time Taken Comments Blood Pressure 152/62 11/01/2024 11:57 AM CDT Pulse 57 11/01/2024 11:38 AM CDT Temperature 36.6 C (97.8 F) 10/20/2024 9:10 PM CDT Respiratory Rate 14 10/21/2024 7:49 AM CDT Oxygen Saturation 99% 11/01/2024 11:38 AM CDT Inhaled Oxygen Concentration - - Weight 87.1 kg (192 lb) 11/01/2024 11:38 AM CDT Height 168.9 cm (5' 6.5) 10/20/2024 9:10 PM CDT Body Mass Index 30.53 10/20/2024 9:10 PM CDT Plan of Treatment Upcoming Encounters Date Type Department Care Team (Late st Contact Info) Description 11/07/2024 11:00 AM CDT Appointment [address] [address] 11/15/2024 11:20 AM CDT Office Visit [facility] [address] [place] [address] Claus Khan MD [address] [place] [address] 11/27/2024 4:00 PM CDT Orders Only [facility] [address] [place] [address] Lab, [facility] 12/01/2024 10:45 AM CDT Office Visit [facility] [address] [address] [place] [address] [facility] [address] [place] [address] 01/01/2025 9:15 AM CDT Orders Only [facility] [address] [place] [address] Lab, N[place] 02/05/2025 11:45 AM DONOR SUPPORT TECHNICIAN Office Visit [facility] [address] [place] [address] Claus Khan MD [address] [place] [address] Health Maintenance Due Date Last Done Comments [...] Procedure Name Priority Date/Time Associated Diagnosis Comments SCAN CORRESP-IMAGING 10/23/2024 2:43 PM CDT SCAN CORRESP-IMAGING 10/23/2024 2:43 PM CDT SCAN CORRESP-EKG RESULTS 10/23/2024 2:41 PM CDT BASIC METABOLIC PANEL Routine 10/23/2024 11:57 AM CDT CAD in [place] artery GLUCOSE METER Timed 10/21/2024 7:33 AM CDT SCAN-CARDIAC STRIP 10/21/2024 7: 30 AM CDT TROPONIN T (HS) ONE TIME ESTEFANIA 10/21/2024 7:12 AM CDT POTASSIUM Early AM 10/21/2024 7:12 AM CDT CREATININE Early AM 10/21/2024 7:12 AM CDT SCAN-CARDIAC STRIP 10/21/2024 12 :14 AM CDT GLUCOSE METER Timed 10/20/2024 9:49 PM CDT SCAN-CARDIAC STRIP 10/20/2024 9: 11 PM CDT SCAN-LABORATORY REPORT 10/20/2024 12:00 AM CDT SCAN-RADIOLOGY REPORT 10/20/2024 12:00 AM CDT GLUCOSE METER Timed 10/18/2024 11:36 AM CDT [...] SCAN-CARDIAC STRIP 10/17/2024 3: 25 PM CDT HCHG ACTIVATED CLOTTING TM CV Timed 10/17/2024 12:19 PM CDT HCHG ACTIVATED CLOTTING TM CV Timed 10/17/2024 12:04 PM CDT HCHG ACTIVATED CLOTTING TM CV Timed 10/17/2024 11:53 AM CDT CVL CORONARY ANGIOGRAM POSS PCI Routine [...] DOSE WO CONTRAST Routine 03/13/2024 8:29 AM DONOR SUPPORT TECHNICIAN Encounter for screening for lung cancer Smoker XR DXA BONE DENSITY 2 SITES AXIAL Routine 02/09/2022 9:28 AM DONOR SUPPORT TECHNICIAN Post-menopause COLONOSCOPY SCREENING Routine 08/11/2021 12:00 AM CDT Screening for colon cancer ANTI HCV Add On 12/15/2018 8:09 AM CDT Need for hepatitis C screening test from Last 3 Months or Most Recently Relevant to Health Maintenance Results * SCAN CORRESP-IMAGING (10/23/2024 2:43 PM CDT) Only the most recent of3 resultswithin the time period is included. Anatomical Region Laterality Modality Other Narrative 10/23/2024 2:43 PM CDT Ordered by an unspecified provider. us Other Clinical Staff OTHER Final Resul t * SCAN CORRESP-EKG RESULTS (10/23/2024 2:41 PM CDT) Only the most recent of3 resultswithin the time period is included. Narrative 10/23/2024 2:41 PM CDT Ordered by an unspecified provider. us Other Clinical Staff OTHER Final Resul t * (ABNORMAL) BASIC METABOLIC PANEL (10/23/2024 11:57 AM CDT) Only the most recent of2 resultswithin the time period is included. GLUCOSE 147(H) 65 - 99 mg/dL [facility] Comment: Fasting reference interval For someone without known diabetes, a glucose value >125 mg/dL indicates that they may have diabetes and this should be confirmed with a follow-up test. UREA NITROGEN (BUN) 34(H) 7 - 25 mg/dL [facility] CREATININE 1.21(H) 0.60 - 1.00 mg/dL [facility] EGFR 47(L) > OR = 60 mL/min/1.7 3m2 [facility] BUN/CREATININE RATIO 28(H) 6 - 22 (calc) [facility] SODIUM 134(L) 135 - 146 mmol/L [facility] POTASSIUM 4.5 3.5 - 5.3 mmol/L [facility] CHLORIDE 101 98 - 110 mmol/L [facility] CARBON DIOXIDE 25 20 - 32 mmol/L [facility] ELECTROLYTE BALANCE 8 7 - 17 mmol/L (calc) [facility] CALCIUM 9.5 8.6 - 10.4 mg/dL [facility] Blood BLOOD SPECIMEN / Unknown 10/23/2024 11:57 AM CDT 10/23/2024 11:57 AM CDT Claus Khan MD CHEMISTRY Final Result [facility] [address] [place] [address], [facility] [address] [place] [address] * (ABNORMAL) GLUCOSE METER (10/21/2024 7:33 AM CDT) Only the most recent of8 resultswithin the time period is included. GLUCOSE METER 143(H) 65 - 100 mg/dL 10/21/2024 7:34 AM CDT [facility] Blood BLOOD SPECIMEN / Unknown 10/21/2024 7:33 AM CDT 10/21/2024 7:34 AM CDT [facility] CHEMISTRY Final Re sult [facility] [address] [place] [address], * SCAN-CARDIAC STRIP (10/21/2024 7:30 AM CDT) Scanner OTHER Final Result * (ABNORMAL) TROPONIN T (HS) ONE TIME (10/21/2024 7:12 AM CDT) Only the most recent of2 resultswithin the time period is included. TROPONIN T HS 565(H) 6-10 ng/L ng/L 10/21/2024 9:35 AM CDT [facility] Blood BLOOD SPECIMEN / Unknown Butterfly / Unknown 10/21/2024 7:12 AM CDT 10/21/2024 7:39 AM CDT Narrative [facility] - 10/21/2024 9:35 AM CDT hs-cTnT (Elecsys Troponin T Gen [...] Eran Campbell MD CHEMISTRY Final Resul t [facility] [address] [place] [address], * POTASSIUM (10/21/2024 7:12 AM CDT) Only the most recent of2 resultswithin the time period is included. POTASSIUM 4.8 3.5 - 5.1 mmol/L 10/21/2024 8:06 AM CDT [facility] Blood BLOOD SPECIMEN / Unknown Butterfly / Unknown 10/21/2024 7:12 AM CDT 10/21/2024 7:39 AM CDT us Eran Campbell MD CHEMISTRY Final Resul t Performing Organization Address [facility] de Phone Number [facility] [address] [place] [address], * (ABNORMAL) CREATININE (10/21/2024 7:12 AM CDT) Only the most recent of2 resultswithin the time period is included. eGFR 51(L) >90 mL/min/1.7 3m2 10/21/2024 8:06 AM CDT [facility] Comment:As of 2021, eG FR is calculated by the CKD-EPI creatinine equation without race adjustment. eGFR can be influenced by muscle mass, exercise, and diet. The reported eGFR is an estimation only and is only applicable if the renal function is stable. CREATININE 1.12(H) 0.50 - 0.90 mg/dL 10/21/2024 8:06 AM CDT [facility] Blood BLOOD SPECIMEN / Unknown Butterfly / Unknown 10/21/2024 7:12 AM CDT 10/21/2024 7:39 AM CDT us Eran Campbell MD CHEMISTRY Final Resul t Performing Organization Address [facility] Co de Phone Number [facility] [address] [place] [address], * SCAN-CARDIAC STRIP (10/21/2024 12:14 AM CDT) us Scanner OTHER Final Result * SCAN-CARDIAC STRIP (10/20/2024 9:11 PM CDT) us Scanner OTHER Final Result * SCAN-RADIOLOGY REPORT (10/20/2024 12:00 AM CDT) Only the most recent of2 resultswithin the time period is included. Anatomical Region Laterality Modality Other us Scanner OTHER Final Result * SCAN-LABORATORY REPORT (10/20/2024 12:00 AM CDT) us Scanner OTHER Final Result * SCAN-CARDIAC STRIP (10/18/2024 10:05 AM CDT) us Scanner OTHER Final Result * EKG - In AM (10/18/2024 5:44 [...] NOW QTc 469 ms BEYOND NOW P [place] 43 degrees BEYOND NOW R [place] -19 degrees BEYOND NOW T [place] 89 degrees BEYOND NOW 10/18/2024 5:44 AM CDT 10/18/2024 6:28 PM CDT us Thorndike Ted Wylie MD EKG ORD Final Result Performing Organization Address City/State/[facility] Co de Phone Number BEYOND NOW [place], [place] * SCAN-CARDIAC STRIP (10/18/2024 3:47 AM [...] Tech: OLEGARIO Referring MD: FABRICIO FARIAS Site: [facility] Reading Location: ANW IP Patient Location: Inpatient. [...] documentation: 2 ml diluted Definity, lot #[id number], [facility]# [id number] was administered peripherally to enhance visualization of all left ventricular segments. . This study was interpreted by an [facility] accredited facility. Final Procedure Note Cedrick Molina MD - 10/17/2024 ECHOCARDIOGRAM KOBI ALBERTO : 1950 74 years Study Date: 10/17/2024 1:27:43 PM Gender: F BP: 159/96 mmHg Height: 169.00 cm BSA: 1.97 m Weight: 86.00 kg Tech: OLEGARIO Referring MD: FABRICIO FARIAS Site: [facility] Reading Location: W Patient Location: Inpatient. Procedure: 2D w/ Contrast, [...] documentation: 2 ml diluted Definity, lot #[id number], [facility]#[id number] was administered peripherally to enhance visualization of allleft ventricular segments. . This study was interpreted by an [facility] accredited facility. Final us Fabricio Farias PA ECHO ORD Final Res ult * SCAN-CARDIAC STRIP (10/17/2024 3:25 PM CDT) Scanner OTHER Final Result * (ABNORMAL) ACTIVATED CLOTTING TIME KQT911 ACT (10/17/2024 12:19 PM CDT) Only the most recent of3 resultswithin the time period is included. ACTIVATED CLOTTING TIME, POCT 259(H) 74 - 125 sec 10/27/2024 7:36 PM CDT [facility] [employer] [facility] Blood BLOOD SPECIMEN / Unknown 10/17/2024 12:19 PM CDT 10/27/2024 7:36 PM CDT us Anw Hospitalists Of [facility] HEMATOLOGY Final Re sult [facility] [address] [place] [address], * CVL CORONARY ANGIOGRAM POSS PCI (10/17/2024 11:37 AM CDT) Anatomical Region Laterality Modality Other 10/17/2024 11:3 7 AM CDT Narrative Transcriptions Kristy Wylie MD - 10/17/2024 12:26 PM CDT [facility] Cardiac Catheterization Report Name: KOBI ALBERTO Event Date: 10/17/2024 11:37 Excellian ID #: [id number] MICHI #: [id number] Patient Class: Inpatient Diagnostic Physician: KRISTY WYLIE [facility] Interventional Physician: KRISTY WYLIE [facility] Referring Physician: Date: 1950 Gender: Female Age: 74 Summary/Conclusions PRESENTATION / INDICATIONS * Non-ST elevation LA DIAGNOSTIC - CORONARY * The left main [...] mg bid for one year Consent & [place] Protocol The risks, benefits, and alternatives of the procedure were discussed withthe patient and written informed consent was obtained. [place] protocol was followed. TIME OUT conducted just prior tostarting procedure confirmed patient identity, site/side, procedure,patient position, and availability of correct equipment and implants (ifapplicable). Staff Name Title KRISTY WYLIE Diagnostic Bottoming Machine Operator Vita Cole RN Nurse Costa Dominguez CVT Scrub Columba Irizarry CVT Scrub Junior Petersen CVT Monitor KRISTY WYLIE Controlled Area Checker Procedures ? Ultrasound Guided Vascular Access ? [...] 1 Distal RCA Balloon BLLN EU[place] RX [id number] <[id number]> 1 Distal RCA Drug Eluting Stent IVANA AYANA [place] RX [id number] 2 Mid Circumflex Balloon BLLN [place] RX [id number] <[id number]> 2 Mid Circumflex Drug Eluting Stent IVANA AYANA [place] RX [id number] Procedure Details Estimated Blood Loss: < 30 [...] Tammy RN 11:34 Fentanyl 50 mcg IV Dejan Kristy Vita Archibald RN 11:37 1% Lidocaine 1.5 ml Subcut Kristy Wylie Yale L 11:40 Verapamil 3 mg IA Kristy Wylie [...] Tammy RN 12:09 Nitroglycerin 100 mcg IC Wylie, Kristy Aburto 12:09 Nicardipine (Cardene) 0.2 mg IC Kristy Wylie Thorndike Carlos 12:13 Verapamil 3 mg IA Dejan Kristy Carlos Wylie Thorndike Carlos I personally monitored the patient?s conscious sedation during theprocedure. Conscious sedation starts with the first sedation medication dose ofFentanyl or Versed and ends when the procedure is completed, the patientis stable for recovery status, and the physician or other qualified healthcare professional providing the sedation ends personal [id number] time with the patient. The medications listed above were verbally ordered by me and read back tome as documented above. Refer to the procedure log report for additional case details. electronically signed on 10/17/2024 12:26:41 PM with status of Final Kristy Wylie MD [facility] [address] [place] [address] (p) [phone](f) us Provider Referring CV IMAGING Edited Result - Final * PLATELET COUNT (10/17/2024 7:32 AM CDT) Only the most recent of2 resultswithin the time period is included. PLATELET COUNT 327 140 - 440 thou/cu mm 10/17/2024 7:52 AM CDT [facility] MPV 9.5 6.5 - 11.0 fL 10/17/2024 7:52 AM CDT [facility] Blood BLOOD SPECIMEN / Unknown Butterfly / Unknown 10/17/2024 7:32 AM CDT 10/17/2024 7:45 AM CDT [facility] - 10/17/2024 7:52 AM CDT Every morning while on IV heparin. Necessary every morning while on IV heparin. Eran Campbell MD HEMATOLOGY Final Resul t Performing Organization Address [facility] de Phone Number [facility] [address] [place] [address], [place] * HEMOGLOBIN (10/17/2024 7:32 AM CDT) Only the most recent of2 resultswithin the time period is included. HEMOGLOBIN 13.7 12.0 - 16.0 g/dL 10/17/2024 7:52 AM CDT [facility] MCV 88 80 - 100 fL 10/17/2024 7:52 AM CDT [facility] Blood BLOOD SPECIMEN / Unknown Butterfly / Unknown 10/17/2024 7:32 AM CDT 10/17/2024 7:45 AM CDT [facility]ATORY - 10/17/2024 7:52 AM CDT Every morning while on IV heparin. Necessary every morning while on IV heparin. Eran Campbell MD HEMATOLOGY Final Resul t Performing Organization Address City/[facility] Co de Phone Number [facility] [address] [place], [place] [id number], [place] * (ABNORMAL) APTT (10/17/2024 7:32 AM CDT) Only the most recent of2 resultswithin the time period is included. APTT 77(H) 25 - 36 sec 10/17/2024 7:56 AM CDT [facility] Blood BLOOD SPECIMEN / Unknown Butterfly / Unknown 10/17/2024 7:32 AM CDT 10/17/2024 7:45 AM CDT Narrative [facility] - 10/17/2024 7:56 AM CDT Therapeutic Range: 59-89 seconds us Eran Campbell MD HEMATOLOGY Final Resul t Performing Organization Address City/[facility]/ZIP Co de Phone Number [facility] [address] [place] [address], * MAGNESIUM (10/17/2024 7:32 AM CDT) MAGNESIUM 2.1 1.6 - 2.4 mg/dL 10/17/2024 8:18 AM CDT [facility] Blood BLOOD SPECIMEN / Unknown Butterfly / Unknown 10/17/2024 7:32 AM CDT 10/17/2024 7:45 AM CDT us Stan Moses MD CHEMISTRY Final Result Performing Organization Address City/[facility] Co de Phone Number [facility] [address] [place] [address], [place] * (ABNORMAL) HEMOGLOBIN A1C MONITORING (POCT) (10/17/2024 7:32 AM CDT) HEMOGLOBIN A1C MONITORING (POCT) 7.2(H) <=6.4 % 10/17/2024 4:01 PM CDT [facility] Blood BLOOD SPECIMEN / Unknown Butterfly / Unknown 10/17/2024 7:32 AM CDT 10/17/2024 7:45 AM CDT Narrative [facility] - 10/17/2024 4:01 PM CDT (<=6.9%) Indicates good control (7.0% to 7.9%) Indicates fair control (>=8.0%) Indicates poor control NOTE: These thresholds are guidelines and individual targets may vary. Falsely low levels may be seen with: Recent Transfusion, Recent Significant Blood Loss, Hemolytic Diseases, or Falsely elevated levels may be seen with: Untreated Anemias, Splenectomy us Eran Campbell MD CHEMISTRY Final Resul t Performing Organization Address City/[facility]/ZIP Co de Phone Number [facility] [address] [place] [id number], [place] * (ABNORMAL) Lipid Panel AM (10/17/2024 7:32 AM CDT) CHOLESTEROL,TOTAL 222(H) 100 - 199 mg/dL 10/17/2024 8:18 AM CDT [facility] Comment: Cholesterol, Total Reference Ranges Desirable <200 mg/dL Borderline 200-239 mg/dL High >=240 mg/dL TRIGLYCERIDES 196(H) <150 mg/dL 10/17/2024 8:18 AM CDT [facility] HDL CHOLESTEROL 40(L) >40 mg/dL 8:18 AM CDT [facility] NON-HDL CHOLESTEROL 182(H) <145 mg/dl 10/17/2024 8:18 AM CDT [facility] CHOL/HDL RATIO 5.55(H) <4.50 10/17/2024 8:18 AM CDT [facility] LDL CHOLESTEROL 143(H) <=130 mg/dL 10/17/2024 8:18 AM CDT [facility] VLDL CHOLESTEROL 39(H) <=30 mg/dL 10/17/2024 8:18 AM CDT [facility] PROVIDER ORDERED STATUS RANDOM 10/17/2024 8:18 AM CDT [facility] Blood BLOOD SPECIMEN / Unknown Butterfly / Unknown 10/17/2024 7:32 AM CDT 10/17/2024 7:45 AM CDT us Eran Campbell MD CHEMISTRY Final Resul t [facility] [address] [place] [phone], [place] * SCAN-CARDIAC STRIP (10/17/2024 7:28 AM CDT) us Scanner OTHER Final Result * (ABNORMAL) TROPONIN T (HS) ACUTE W/2HR REFLEX (10/17/2024 12:21 AM CDT) Pathologist [facility] TROPONIN T HS 6,706(H) 6-10 ng/L ng/L 10/17/2024 1:05 AM CDT [facility] Blood BLOOD SPECIMEN / Unknown Venipuncture / Unknown 10/17/2024 12:21 AM CDT 10/17/2024 12:43 AM CDT [facility] - 10/17/2024 1:05 AM CDT hs-cTnT [...] CHEMISTRY Final Resul t Performing Organization Address [facility] de Phone Number [facility] [address] [place] [phone], * PROTIME-INR (10/17/2024 12:21 AM CDT) INR 1.0 <1.3 10/17/2024 12:56 AM CDT [facility] PROTIME 11.5 10.6 - 12.4 sec 10/17/2024 12:56 AM CDT [facility] Blood BLOOD SPECIMEN / Unknown Venipuncture / Unknown 10/17/2024 12:21 AM CDT 10/17/2024 12:43 AM CDT Narrative [facility] - 10/17/2024 12:56 AM CDT Therapeutic [...] HEMATOLOGY Final Resul t Performing Organization Address [facility] Co de Phone Number [facility] [address] [place] [address], * SCAN-CARDIAC STRIP (10/17/2024 12:19 AM CDT) us Scanner OTHER Final Result * CT CHEST SCREENING LOW DOSE WO CONTRAST (03/13/2024 8:29 AM DONOR SUPPORT TECHNICIAN) Anatomical Region Laterality Modality Computed Tomogra phy Impressions 03/21/2024 10:47 AM DONOR SUPPORT TECHNICIAN Stable scattered sub 6 mm indeterminate pulmonary [...] 1:45:49 PM /sp Narrative 03/21/2024 10:47 AM DONOR SUPPORT TECHNICIAN For Patients: As a result of the [...] DENSITY 2 SITES AXIAL (02/09/2022 9:28 AM DONOR SUPPORT TECHNICIAN) Anatomical Region Laterality Modality Spine, HIPS, HIPL, HIPR Other Impressions 02/10/2022 12:48 PM DONOR SUPPORT TECHNICIAN Osteopenia. RECOMMENDATIONS: The National Osteoporosis Foundation recommends [...] recommended in 3-5 years. Mirian Ngo PA-C [facility] 02/10/2022 Narrative 02/10/2022 12:48 PM DONOR SUPPORT TECHNICIAN For Patients: Results are automatically released to your [facility] account once available, in compliance with federal regulations. This means that you may see your results before your provider has had a chance to review them. Please allow 2-3 business days for your provider to comment on the results. XR DXA Bone Mineral Density (BMD) EXAM LOCATION: [address] [address] PATIENT NAME: Kobi Alberto DATE OF : [...] two scanners are made by the same log check scaler. PROCEDURE: Dual-energy x-ray absorptiometry performed with routine [...] emy Non-React emy 12/20/2018 9:40 AM CDT [email or web address] Comment:Antibodies to HCV no t detected; does not exclude the possibility of exposure to HCV. Blood BLOOD SPECIMEN / Unknown Venipuncture / Unknown 12/15/2018 8:09 AM CDT 12/15/2018 8:09 AM CDT Claus Khan MD SEND OUTS Final Result [facility] [address] [place] [address], [place] from Last 3 Months or Most Recently Relevant to Health Maintenance Insurance [employer] [place] PB ONLY MEDICARE PART B HB ONLY [employer] [place] ONLY MEDICARE PART A HB ONLY Advance Directives * Full Code (Latest Code Status on File) Date Activated Date Inactivated Comments 10/20/2024 9:13 PM 10/21/2024 1:40 PM Question Answer Comments Code Status Discussion: Reviewed Preferences * Full Code Date Activated Date Inactivated Comments 10/17/2024 12:06 AM 10/18/2024 2:54 PM Question Answer Comments Code Status Discussion: Reviewed Preferences * Full Code Date Activated Date Inactivated Comments 10/16/2024 11:29 PM 10/17/2024 12:06 AM Question Answer Comments Code Status Discussion: Unable to Assess Preferences, Provider to review later Care Teams Combine Inspector Relationship Specialty Start Date End Date Claus Khan MD [address] [place] [id number] PCP - General Family Practice 08/18/13
[2024-11-01 17:38] VITALS: BP 178/83; PULSE 89; RESP 22; TEMP 36.9; O2SAT 99
--- NOTE | 2024-11-01 17:45 | ED_ITS ---
HPI - General Adult General Chief complaint: Hypertension Stated complaint: High blood pressure Time Seen by Provider: 11/01/24 17:45 History of Present Illness HPI narrative: Patient reports NSTEMI 1.5 weeks ago, 2 two stents were placed. Patient reports taking home BP with reading over 200/. She did just take her BID dose of carvedilol before arrival. Also endorses some anxiety with everything going on. Denies SOB, chest pain or headache. 74-year-old woman presenting to the emergency department concern of high blood pressure and potential risk of stroke. She actually saw her primary today in think seem to be going well. Working at keeping her blood pressures down. Was seen on the and of this month in this emergency department. Initial visit was diagnosed with a non STEMI and did have some EKG changes and was sent up to [facility] where had 2 cardiac stents placed. Looks like drug-eluting stents to the mid circumflex and distal RCA. Sounds like head no significant injury to her heart. Has not yet started cardiac rehab. She did return though 4 days later with some jaw pain and was returned to [facility] anticipating potential CT coronary angiogram but ultimately Savannah reports that that was not done and was discharged home. She has generally been feeling well. She had been cleaning house today. Took a break and felt a twinge of discomfort in the left chest. Decided to continue resting and checked blood pressures that were sequentially more and more elevated up to over 200 systolic. She was afraid of potentially having a stroke. She describes blood pressures being better in the office and then as she sits and perseverates at home they get worse. She admits that this experience had some really rocked her world and is experiencing significant stress over this. Has not slept well over last 10 years. 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 She has been for about 7 years now. She is wearing a nicotine patch and has not smoked over the last 2 weeks or so. 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 Taking medications as prescribed. Related Data Home Medications ?Medication ?Instructions ?Recorded ?Confirmed amlodipine 10 mg tablet 10 mg PO DAILY 11/10/2310/06 levothyroxine 100 mcg tablet 100 mcg PO DAILY 11/10/23 10/20/24 lisinopril 40 mg tablet 40 mg PO DAILY 11/10/2310/06 carvedilol 6.25 mg tablet 6.25 mg PO BID 10/20/2410/07 nitroglycerin 0.4 mg sublingual mg sublingual 10/20/24 tablet rosuvastatin 40 mg tablet 40 mg PO DAILY 10/20/2410/06 ticagrelor 90 mg tablet PO 10/20/24 Allergies Allergy/AdvReac Type Severity Reaction Status Date / Time atorvastatin Allergy Mild Headache, Verified 11/01/24 19:12 Peeling of Skin chlorthalidone Allergy Mild Low Sodium Verified 11/01/24 19:12 metformin AdvReac Intermediate GI Side Verified 11/01/24 19:12 Effects Review of Systems Status of ROS: Reports: 6 or more systems reviewed and unremarkable except as noted in History and below [facility] Medical History Anxiety ?F41.9 - Anxiety disorder, unspecified (ICD-10) Stage 3a chronic kidney disease ?N18.31 - Chronic kidney disease, stage 3a (ICD-10) Coronary artery disease involving [place] coronary artery of [place] heart with unstable angina pectoris ?I25.110 - Atherosclerotic heart disease of [place] coronary artery with unstable angina pectoris (ICD-10) NSTEMI (non-ST elevated myocardial infarction) ?I21.4 - Non-ST elevation (NSTEMI) myocardial infarction (ICD-10) Primary hypertension ?I10 - Essential (primary) hypertension (ICD-10) Osteopenia of multiple sites ?M85.89 - Other specified disorders of bone density and structure, multiple sites (ICD-10) Hyponatremia ?E87.1 - Hypo-osmolality and hyponatremia (ICD-10) Type 2 diabetes mellitus without complication ?E11.9 - Type 2 diabetes mellitus without complications (ICD-10) Tobacco abuse ?Z72.0 - Tobacco use (ICD-10) Colon polyp ?K63.5 - Polyp of colon (ICD-10) Surgical History (Updated 11/01/24 @ 19:18 by Steffen Doe RN) History of tubal ligation ?Z98.51 - Tubal ligation status (ICD-10) History of colonoscopy ?Z98.890 - Other specified postprocedural states (ICD-10) History of section ?Z98.891 - History of uterine scar from previous surgery (ICD-10) History of eyelid surgery ?Z98.890 - Other specified postprocedural states (ICD-10) Social History Smoking Status: Current every day smoker What tobacco products do you use: cigarettes Do you use any of these nicotine containing products: None Second hand tobacco smoke exposure: No How often do you have a drink containing alcohol: never AUDIT-C Alcohol total score: 0 Non-prescribed substance use: denies use Exam Narrative: Exam Narrative: Very pleasant. Jokes and laughs easily. Breathing easily. Lungs are clear. Heart in regular rate and rhythm without apparent murmur rub or gallop. Moving all extremities without difficulty. Cranial nerves 2-12 intact. She is well- perfused peripherally. There is no lower extremity edema. Const: Vital Signs, click to edit/add: Vital Signs - 24 hr 11/01/24 17:38 11/01/24 18:36 Temperature 98.5 F Pulse Rate [Pulse Oximeter] 89 Respiratory Rate 22 Blood Pressure [Ri ght Upper Arm] 178/83 H 151/81 H Pulse Oximetry 99 Oxygen Delivery Me thod Room Air Documenting provider has reviewed patient's vital signs: yes Course Vital Signs Vital signs: Initial Vital Signs Temperature 98.5 F 11/01/24 17:38 Temperature Source Temporal Artery Scan 11/01/24 17:38 Pulse Rate 89 11/01/24 17:38 Respiratory Rate 22 11/01/24 17:38 Blood Pressure 178/83 H 11/01/24 17:38 Blood Pressure Mean 114 H 11/01/24 17:38 Pulse Oximetry 99 11/01/24 17:38 Oxygen Delivery Method Room Air 11/01/24 17:38 Vital Signs Temperature 98.5 F 11/01/24 17:38 Pulse Rate 89 11/01/24 17:38 Respiratory Rate 22 11/01/24 17:38 Blood Pressure 178/83 H 11/01/24 17:38 Pulse Oximetry 99 11/01/24 17:38 Oxygen Delivery Method Room Air 11/01/24 17:38 Temperature 98.5 F 11/01/24 17:38 Pulse Rate 89 11/01/24 17:38 Respiratory Rate 22 11/01/24 17:38 Blood Pressure 151/81 H 11/01/24 18:36 Pulse Oximetry 99 08/27/25 17:38 Oxygen Delivery Method Room Air 11/01/24 17:38 Medical Decision Making MDM Narrative Medical decision making narrative: I am inclined to agree with Savannah that anxiety, stress is most likely the issue here. Does not have any red flag symptoms currently. Blood pressure while elevated initially, is improved from before, which she measured at home; initially here 178/83. Certainly no deficits to suggest CVA. EKG today independently reviewed by me shows normal sinus rhythm. Actually shows further improvement in resolution of ischemic changes that were noted in EKG from 10/16/2024. Including normalization of T-wave orientation. Did spend some time in conversation with Savannah Blood pressure recheck at 151/81. She has been asymptomatic during time in the emergency department. I think will be safe to discharge to outpatient follow-up in cardiac rehab. Offered encouragement. See patient discharge plan for further discussion Medical Records Medical records reviewed: Yes I reviewed the patient's medical records Discharge Plan Discharge Clinical Impression: Elevated blood pressure reading, Other social stressor, Anxiety Patient Disposition: Home, Self-Care Condition: Improved Additional Instructions: I am reassured by what I see here today. I hope you can be as well. Yes, I think you are going to have to find different stress relievers. Might be something with a little physical activity as well. I am hoping you will have more confidence after starting cardiac rehab. Please return for high blood pressures that are not resolving, symptoms of chest pain, jaw pain, associated nausea or diaphoresis or lightheadedness, severe headache. Prescriptions: No Action lisinopril 40 mg tablet 40 mg PO DAILY amlodipine 10 mg tablet 10 mg PO DAILY levothyroxine 100 mcg tablet 100 mcg PO DAILY carvedilol 6.25 mg tablet 6.25 mg PO BID nitroglycerin 0.4 mg tablet, sublingual sublingual rosuvastatin 40 mg tablet 40 mg PO DAILY ticagrelor 90 mg tablet PO Follow Up/Referrals: Claus Khan MD [Primary Care Provider, Family Practice] Stand Alone Forms: [employer] Info Instructions
[2024-11-01 18:36] VITALS: BP 151/81
[2024-11-01 19:18] VITALS: BP 151/81; PULSE 89; RESP 22; TEMP 36.9
== END 2024-11-01 19:18 | disposition home or self-care (01) ==
PROVIDERS: Emergency Provider Family Medicine; PCP Family Medicine
DX: I10 Essential (primary) hypertension (principal); F43.9 Reaction to severe stress, unspecified; F41.9 Anxiety disorder, unspecified
CPT/HCPCS: 93005; 99283